=== PATIENT | male | born 1960 | race Caucasian/White ===

== ENCOUNTER 2020-11-13 00:02 | Emergency (ER) | payer BC ==
[2020-11-13] MEDS ORDERED: HYDROmorphone 1 MG/ML 1 ML SYRINGE IVP STA (00:05)
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
[2020-11-13] MEDS: SODIUM CHLORIDE 0.9% 1,000 ML IV STA ×2 (00:24→02:56)
[2020-11-13 00:35] VITALS: TEMP 98.3
[2020-11-13 00:44] LABS: Basophils # (A) 0.1 k/uL (0-0.2); Basophils % (A) 0 %; Eosinophils # (A) 0.1 k/uL (0-0.7); Eosinophils % (A) 1 %; HCT 42.2 % (39.0-53.0); HGB 14.8 gm/dL (13.0-17.5); Lymphocytes # (A) 0.5 k/uL (1.0-4.8); Lymphocytes % (A) 5 %; MCH 33.2 pg (25.0-35.0); MCV 95.1 fL (80.0-100.0); Monocytes # (A) 0.7 k/uL (0-1.0); Monocytes % (A) 6 %; Neutrophils # (A) 9.1 k/uL (1.3-7.7); Neutrophils % (A) 87 %; Platelet Count 147 k/uL (150-450); RBC 4.44 m/uL (4.30-5.90); RDW 12.8 % (11.5-15.5); WBC 10.5 k/uL (3.8-10.6)
[2020-11-13 01:01] LABS: Prothrombin Time 10.3 sec (9.0-12.0)
[2020-11-13 01:12] LABS: Partial Thromboplastin Time 20.4 sec (22.0-30.0)
--- NOTE | 2020-11-13 01:13 | CT ---
EXAM: CT Head Without Intravenous Contrast CLINICAL HISTORY: ITS.REASON CT Reason: trauma TECHNIQUE: Axial computed tomography images of the head/brain without intravenous contrast. CTDI is 35.335 mGy and DLP is 936.85 mGy-cm. This CT exam was performed using one or more of the following dose reduction techniques: automated exposure control, adjustment of the mA and/or kV according to patient size, and/or use of iterative reconstruction technique. COMPARISON: No relevant prior studies available. FINDINGS: Brain: No acute infarct, hemorrhage, mass or edema. Chronic small vessel ischemic disease. Ventricles: Unremarkable. No ventriculomegaly. Bones/joints: Unremarkable. No acute calvarial fracture. Soft tissues: Unremarkable. Sinuses: Mild mucosal thickening the paranasal sinuses. Mastoid air cells: Unremarkable as visualized. IMPRESSION: No acute findings in the head/brain. EXAM: CT Cervical Spine Without Intravenous Contrast CLINICAL HISTORY: ITS.REASON CT Reason: trauma TECHNIQUE: Axial computed tomography images of the cervical spine without intravenous contrast. CTDI is 35.335 mGy and DLP is 936.85 mGy-cm. This CT exam was performed using one or more of the following dose reduction techniques: automated exposure control, adjustment of the mA and/or kV according to patient size, and/or use of iterative reconstruction technique. COMPARISON: No relevant prior studies available. FINDINGS: Vertebrae: Acute nondisplaced fracture through the base of the dens suggesting a type II dens fracture. Discs/spinal canal/neural foramina: Multilevel degenerative changes. Soft tissues: Unremarkable. IMPRESSION: Acute nondisplaced fracture through the base of the dens suggesting a type II dens fracture. <MYCVCSECTION> Communications: 11/13/20 01:18 Verify Receipt Verified receipt with ANGELICA Cain
--- NOTE | 2020-11-13 01:22 | CT ---
EXAM: CT Chest With Intravenous Contrast CLINICAL HISTORY: ITS.REASON CT Reason: trauma TECHNIQUE: Axial computed tomography images of the chest with intravenous contrast. CTDI is 25.442 mGy and DLP is 1529.70 mGy-cm. This CT exam was performed using one or more of the following dose reduction techniques: automated exposure control, adjustment of the mA and/or kV according to patient size, and/or use of iterative reconstruction technique. COMPARISON: No relevant prior studies available. FINDINGS: Lungs: Bibasilar atelectasis and/or scarring. Pleural space: Unremarkable. No pneumothorax. No significant effusion. Heart: Unremarkable. No cardiomegaly. No significant pericardial effusion. Bones/joints: Acute fracture of the mid to lateral third right clavicle. Acute fracture of the right third through ninth ribs, a couple of which are displaced. No dislocation. Soft tissues: Unremarkable. Vasculature: Unremarkable. No thoracic aortic aneurysm. Lymph nodes: Unremarkable. IMPRESSION: 1. Acute fracture of the mid to lateral third right clavicle. 2. Acute fracture of the right third through ninth ribs, a couple of which are displaced. EXAM: CT Abdomen and Pelvis With Intravenous Contrast CLINICAL HISTORY: ITS.REASON CT Reason: trauma TECHNIQUE: Axial computed tomography images of the abdomen and pelvis with intravenous contrast. CTDI is 25.442 mGy and DLP is 1529.70 mGy-cm. This CT exam was performed using one or more of the following dose reduction techniques: automated exposure control, adjustment of the mA and/or kV according to patient size, and/or use of iterative reconstruction technique. COMPARISON: No relevant prior studies available. FINDINGS: Lung bases: Unremarkable. ABDOMEN: Liver: Hepatic steatosis. Gallbladder and bile ducts: Unremarkable. Pancreas: Unremarkable. Spleen: Mild splenomegaly. Adrenals: Unremarkable. Kidneys and ureters: Unremarkable. Stomach and bowel: Colonic diverticulosis. PELVIS: Appendix: Appendix is unremarkable. Bladder: Unremarkable. Reproductive: Unremarkable as visualized. ABDOMEN and PELVIS: Intraperitoneal space: Unremarkable. Bones/joints: Degenerative changes of the spine. No acute fracture. No dislocation. Soft tissues: Unremarkable. Vasculature: Vascular calcifications. Lymph nodes: Unremarkable. IMPRESSION: Mild splenomegaly.
[2020-11-13 01:43] LABS: ALT 80 U/L (4-49); AST 104 U/L (17-59); African American GFR (CKD) >90 (>60 ml/min/1.73 sqM); Albumin 4.2 g/dL (3.5-5.0); Alkaline Phosphatase 64 U/L (38-126); Anion Gap 11 mmol/L; Blood Urea Nitrogen 7 mg/dL (9-20); Calcium 8.9 mg/dL (8.4-10.2); Carbon Dioxide 25 mmol/L (22-30); Chloride 104 mmol/L (98-107); Glucose 244 mg/dL (74-99); Non-African American GFR(CKD) >90 (>60 ml/min/1.73 sqM); Potassium 4.2 mmol/L (3.5-5.1); Sodium 140 mmol/L (137-145); Total Bilirubin 1.3 mg/dL (0.2-1.3)
[2020-11-13 01:45] LABS: Creatine Kinase 1033 U/L (55-170)
[2020-11-13 01:47] LABS: Alcohol 98 mg/dL
[2020-11-13 01:54] LABS: Creatine Kinase MB 9.7 ng/mL (0.0-2.4); Troponin I <0.012 ng/mL (0.000-0.034)
[2020-11-13 02:35] LABS: Appearance,Urine Clear (Clear); Bilirubin,Urine Negative (Negative); Blood,Urine Negative (Negative); Color,Urine Yellow; Glucose,Urine (UA) 2+ (Negative); Ketones,Urine Negative (Negative); Leukocyte Esterase,Urine Negative (Negative); Nitrite,Urine Negative (Negative); Protein,Urine Negative (Negative); Urobilinogen,Urine <2.0 mg/dL (<2.0)
[2020-11-13] MEDS ORDERED: LORazepam 2 MG/ML INJ IV STA (02:40)
[2020-11-13 02:43] LABS: Amphetamine Screen,Urine Not Detected (NotDetected); Barbiturate Screen,Urine Not Detected (NotDetected); Benzodiazepines Screen,Urine Detected (NotDetected); Cocaine Screen,Urine Not Detected (NotDetected); Methadone Screen, Urine Not Detected (NotDetected); Opiate Screen,Urine Detected (NotDetected); Oxycodone Screen, Urine Not Detected (NotDetected); Phencyclidine Screen,Urine Not Detected (NotDetected); Tricyclic Antidepressant,Urine Not Detected (NotDetected); Urn Cannabinoid Scrn Not Detected (NotDetected)
[2020-11-13 02:45] LABS: Specific Gravity,Urine >1.050 (1.001-1.035)
[2020-11-13] MEDS ORDERED: SODIUM CHLORIDE 0.9% 1,000 ML IV STA (02:45)
[2020-11-13 02:50] VITALS: RESP 22
[2020-11-13 03:07] VITALS: BP 182/101; PULSE 102
== END 2020-11-13 03:00 | disposition other institution (70) ==
LOC: EC 00:02
DX: S22.41XA Multiple fractures of ribs, right side, initial encounter for closed fracture (principal); S12.112A Nondisplaced Type II dens fracture, initial encounter for closed fracture; F10.129 Alcohol abuse with intoxication, unspecified; F41.9 Anxiety disorder, unspecified; I10 Essential (primary) hypertension; M10.9 Gout, unspecified; Z79.899 Other long term (current) drug therapy; V86.59XA Driver of other special all-terrain or other off-road motor vehicle injured in nontraffic accident, initial encounter; Y93.89 Activity, other specified; Y92.410 Unspecified street and highway as the place of occurrence of the external cause; Y90.4 Blood alcohol level of 80-99 mg/100 ml
CPT/HCPCS: 36415; 93005; 86900; 86901; 80053; 82550; 82553; 84484; 85025; 85610; 85730; 86850; 81003; 80306; 80320; 72125; 70450; 71260; 74177; 99291; 96374; 96375; 96361 ×2; L0120; J2060; J1170; Q9967

== ENCOUNTER 2021-02-07 21:12 | Inpatient (IN) | payer BC ==
[2021-02-07] MEDS ORDERED: MIDAZOLAM 1 MG/ML 5 ML VIAL IV STA (21:34)
--- NOTE | 2021-02-07 21:45 | CT ---
EXAMINATION TYPE: CT brain dameon wo con DATE OF EXAM: 02/07/2021 COMPARISON: 07/13/2021 HISTORY: Altered mental status, head injury after fall. CT DLP: 1914.9 mGycm Automated exposure control for dose reduction was used. Exam performed without contrast. There is mild cerebral atrophy. There is no mass effect nor midline shift. There is no sign of intrac ranial hemorrhage. Calvarium is intact. There is normal aeration of the mastoid sinuses. Skull base i s intact. Cervical vertebra show mild straightening. There is anterior fusion surgery at C5-6. There is posteri or endplate spur formation at C5-6 with some encroachment on the spinal canal. There is mild hypertro phic facet arthropathy. There is no compression fracture. IMPRESSION: Mild cerebral atrophy. No acute intracranial abnormality. No change. Cervical spine fusion surgery. No fracture seen. Surgery is new compared to old exam. There is probab ly some bony spinal stenosis at C5-6. Unchanged.
--- NOTE | 2021-02-07 21:51 | XR ---
EXAMINATION TYPE: XR chest 1V DATE OF EXAM: 02/07/2021 COMPARISON: NONE HISTORY: Altered mental status TECHNIQUE: Single view FINDINGS: Heart is enlarged. There is mild pulmonary congestion. Exam limited by patient's size. Ther e is poor inspiration. There is cervical spine fusion surgery. IMPRESSION: Cardiomegaly. Pulmonary fibrosis. There is probably some pulmonary vascular congestion.
[2021-02-07 22:04] LABS: Glucose,Whole Blood 165 mg/dL (75-99)
[2021-02-07 22:12] LABS: Basophils % (A) 0 %; Eosinophils % (A) 1 %; HCT 39.1 % (39.0-53.0); HGB 13.9 gm/dL (13.0-17.5); Lymphocytes # (A) 1.1 k/uL (1.0-4.8); Lymphocytes % (A) 21 %; MCH 29.3 pg (25.0-35.0); MCHC 35.4 g/dL (31.0-37.0); MCV 82.8 fL (80.0-100.0); Mean Platelet Volume 7.2; Monocytes # (A) 0.3 k/uL (0-1.0); Monocytes % (A) 6 %; Neutrophils # (A) 3.6 k/uL (1.3-7.7); Neutrophils % (A) 70 %; Platelet Count 110 k/uL (150-450); RBC 4.73 m/uL (4.30-5.90); RDW 14.5 % (11.5-15.5); WBC 5.2 k/uL (3.8-10.6)
[2021-02-07 22:13] LABS: Appearance,Urine Clear (Clear); Bilirubin,Urine Negative (Negative); Blood,Urine Negative (Negative); Color,Urine Yellow; Glucose,Urine (UA) Negative (Negative); Ketones,Urine Negative (Negative); Leukocyte Esterase,Urine Negative (Negative); Nitrite,Urine Negative (Negative); PH, Urine 5.5 (5.0-8.0); Protein,Urine Negative (Negative); Urobilinogen,Urine <2.0 mg/dL (<2.0)
[2021-02-07 22:25] LABS: INR 1.3 (<1.2); Partial Thromboplastin Time 25.1 sec (22.0-30.0); Prothrombin Time 13.2 sec (9.0-12.0)
[2021-02-07 22:33] LABS: ALT 52 U/L (4-49); AST 88 U/L (17-59); Acetaminophen <10.0 ug/mL; African American GFR (CKD) >90 (>60 ml/min/1.73 sqM); Albumin 3.3 g/dL (3.5-5.0); Alkaline Phosphatase 145 U/L (38-126); Anion Gap 11 mmol/L; Blood Urea Nitrogen 16 mg/dL (9-20); Calcium 7.8 mg/dL (8.4-10.2); Carbon Dioxide 23 mmol/L (22-30); Chloride 104 mmol/L (98-107); Creatine Kinase 141 U/L (55-170); Glucose 173 mg/dL (74-99); Non-African American GFR(CKD) >90 (>60 ml/min/1.73 sqM); Potassium 3.9 mmol/L (3.5-5.1); Salicylate <1.0 mg/dL; Sodium 138 mmol/L (137-145); Total Bilirubin 1.2 mg/dL (0.2-1.3); Total Protein 6.1 g/dL (6.3-8.2)
[2021-02-07 22:36] LABS: Amphetamine Screen,Urine Not Detected (NotDetected); Barbiturate Screen,Urine Not Detected (NotDetected); Benzodiazepines Screen,Urine Not Detected (NotDetected); Cocaine Screen,Urine Not Detected (NotDetected); Methadone Screen, Urine Not Detected (NotDetected); Opiate Screen,Urine Not Detected (NotDetected); Oxycodone Screen, Urine Not Detected (NotDetected); Phencyclidine Screen,Urine Not Detected (NotDetected); Tricyclic Antidepressant,Urine Not Detected (NotDetected); Urn Cannabinoid Scrn Not Detected (NotDetected)
[2021-02-07 22:38] LABS: Alcohol 214 mg/dL
[2021-02-07 22:41] LABS: Lactic Acid, Venous 4.4 mmol/L (0.7-2.0)
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
[2021-02-07] MEDS ORDERED: LORazepam 2 MG/ML INJ IV PRN (22:52)
[2021-02-07] MEDS ORDERED: THIAMINE 100 MG/ML 2 ML VIAL IM ONE (23:00)
[2021-02-07] MEDS: LORazepam 2 MG/ML INJ IV PRN (23:32)
[2021-02-07] MEDS ORDERED: SODIUM CHLORIDE 0.9% 2,000 ML IV ONE (23:33)
[2021-02-07] MEDS ORDERED: NALOXONE 0.4 MG/ML 1 ML VIAL IV PRN (23:38)
--- NOTE | 2021-02-08 01:33 | P.HPIM ---
History of Present Illness H&P Date: 02/08/21 The patient is a 60-year-old male with a PMH of EtOH abuse who was brought into the emergency room via EMS for altered mental status and alcohol intoxication. The family reportedly found the patient in their home unresponsive on the floor. EMS was subsequently called and the patient became belligerent, was sedated with 400 mg of ketamine and was brought into the emergency room. At the time of interview, the patient reported that he does not recall the events of the day but that he drinks 2 pints of hard liquor daily. He denied any active complaints and is eager to be discharged home though he agreed to stay the night at the hospital. He denied chest pain, shortness without fever, chills. Denied headache, weakness, numbness, tingling. Denied nausea, vomiting, abdominal pain, diarrhea. CT brain and cervical spine were unremarkable. Chest x-ray revealed cardiomegaly and pulmonary fibrosis with some pulmonary vascular congestion. EKG reveals sinus tachycardia at [address]/T wave changes noted as reviewed by me. Laboratory evaluation was remarkable for lactic acid of 4.4, glucose 173, AST 88, ALT 52, alk phos 145, and a serum alcohol level of 214. Review of systems: Pertinent positives and negatives as discussed in HPI, a complete review of systems was performed and all other systems are negative. Physical examination General: disheveled male, no distress, appears at stated age, obese Derm: no unusual rashes/lesions no unusual ecchymoses, warm, dry Head: atraumatic, normocephalic, symmetric Eyes: EOMI, no lid lag, anicteric sclera, pupils equal round reactive to light ENT: Nose and ears atraumatic, no thrush, no pharyngeal erythema Neck: No thyromegaly, no cervical lymphadenopathy, trachea midline, supple Mouth: no lip lesion, mucus membranes moist Cardiovascular: S1S2 reg, no murmur, positive posterior tibial pulse bilateral, no edema, capillary refill less than 2 seconds Lungs: CTA bilateral, no rhonchi, no rales , no accessory muscle use Abdominal: soft, nontender to palpation, no guarding, no appreciable organomegaly, normal bowel sounds Ext: no gross muscle atrophy, muscle strength 5 out of 5 in all 4 extremities grossly, no contractures, Neuro: CN II-XI grossly intact, light touch intact all 4 extremities, finger to nose within normal limits Psych: Alert, oriented, appropriate affect Assessment/plan Alcohol intoxication, now improved -Thiamine, multivitamin -Continue IV fluids -Monitor electrolytes -CIWA protocol for now Lactic acidosis -Monitor for resolution -continue with IV fluids Hyperglycemia -Check A1c Abnormal LFTs -Likely due to alcohol abuse Thrombocytopenia -Likely secondary to EtOH abuse DVT prophylaxis -IPCDs The patient is admitted with an anticipated less than 2 midnight stay for evaluation of EtOH abuse. CODE STATUS: Full Code Discussed with: Patient Anticipated discharge date: in am Anticipated discharge place: Home A total of 35 minutes was spent on the care of this complex patient more than 50% of the time was spent in counseling and care coordination. Past Medical History Past Medical History: Hypertension Additional Past Medical History / Comment(s): gout History of Any Multi-Drug Resistant Organisms: None Reported Additional Past Surgical History / Comment(s): skin graphs lt side of body d/t jarrell Past Anesthesia/Blood Transfusion Reactions: No Reported Reaction Past Psychological History: Anxiety Past Alcohol Use History: Daily Additional Past Alcohol Use History / Comment(s): chew tobacco uses 1 tin/day for past 30 years Past Drug Use History: None Reported - Past Family History Father Family Medical History: Cancer Mother Family Medical History: Cancer Medications and Allergies Home Medications Medication Instructions Recorded Confirmed Type Losartan/Hydrochlorothiazide 1 tab PO DAILY 11/03/15 02/07/21 History [Losartan-Hctz 100-12.5 mg Tab] Daily-Charissa 1 tab PO DAILY 02/07/21 02/07/21 History busPIRone HCl [Buspar] 10 mg PO BID@0900,1700 02/07/21 02/07/21 History cloNIDine HCL 0.1 mg PO DAILY 02/07/21 02/07/21 History Allergies Allergy/AdvReac Type Severity Reaction Status Date / Time No Known Allergies Allergy Verified 11/02/15 13:37 Physical Exam Vitals: Vital Signs Pulse Resp BP Pulse Ox 02/07/21 23:55 109 H 16 158/97 02/07/21 21:15 109 H 16 190/114 100 Intake and Output 02/07/21 02/07/21 02/08/21 14:59 22:59 06:59 Other: Weight 117.934 kg Results CBC & Chem 7: 02/07/21 22:01 02/07/21 22:01 Labs: Abnormal Lab Results - Last 24 Hours (Table) 02/07/21 02/07/21 02/07/21 Range/Units 22:01 22:01 22:01 Plt Count 110 L (150-450) k/uL PT 13.2 H (9.0-12.0) sec INR 1.3 H (<1.2) Glucose 173 H (74-99) mg/dL POC Glucose (mg/dL) (75-99) mg/dL Plasma Lactic Acid Thor (0.7-2.0) mmol/L Calcium 7.8 L (8.4-10.2) mg/dL AST 88 H (17-59) U/L ALT 52 H (4-49) U/L Alkaline Phosphatase 145 H (38-126) U/L Total Protein 6.1 L (6.3-8.2) g/dL Albumin 3.3 L (3.5-5.0) g/dL Serum Alcohol 214 H* mg/dL 02/07/21 02/07/21 Range/Units 22:01 22:03 Plt Count (150-450) k/uL PT (9.0-12.0) sec INR (<1.2) Glucose (74-99) mg/dL POC Glucose (mg/dL) 165 H (75-99) mg/dL Plasma Lactic Acid Thor 4.4 H* (0.7-2.0) mmol/L Calcium (8.4-10.2) mg/dL AST (17-59) U/L ALT (4-49) U/L Alkaline Phosphatase (38-126) U/L Total Protein (6.3-8.2) g/dL Albumin (3.5-5.0) g/dL Serum Alcohol mg/dL
[2021-02-08] MEDS: LORazepam 2 MG/ML INJ IV PRN ×6 (01:58→22:12)
[2021-02-08 05:46] LABS: Basophils % (A) 0 %; Eosinophils % (A) 1 %; HCT 38.6 % (39.0-53.0); HGB 13.6 gm/dL (13.0-17.5); Lymphocytes # (A) 1.2 k/uL (1.0-4.8); Lymphocytes % (A) 24 %; MCHC 35.1 g/dL (31.0-37.0); MCV 82.6 fL (80.0-100.0); Mean Platelet Volume 7.1; Monocytes # (A) 0.3 k/uL (0-1.0); Monocytes % (A) 6 %; Neutrophils # (A) 3.3 k/uL (1.3-7.7); Neutrophils % (A) 67 %; RBC 4.67 m/uL (4.30-5.90); RDW 14.4 % (11.5-15.5); WBC 4.9 k/uL (3.8-10.6)
[2021-02-08 05:53] LABS: Platelet Count 87 k/uL (150-450)
[2021-02-08 06:29] LABS: African American GFR (CKD) >90 (>60 ml/min/1.73 sqM); Anion Gap 8 mmol/L; Blood Urea Nitrogen 14 mg/dL (9-20); Calcium 7.3 mg/dL (8.4-10.2); Carbon Dioxide 28 mmol/L (22-30); Chloride 105 mmol/L (98-107); Glucose 132 mg/dL (74-99); Magnesium 1.7 mg/dL (1.6-2.3); Non-African American GFR(CKD) >90 (>60 ml/min/1.73 sqM); Potassium 3.9 mmol/L (3.5-5.1); Sodium 141 mmol/L (137-145)
[2021-02-08] MEDS: THIAMINE 100 MG TAB PO SCH ×2 (07:36→17:15)
[2021-02-08] MEDS: SODIUM CHLORIDE 0.9% 1,000 ML IV SCH ×2 (07:37→12:01)
[2021-02-08] MEDS: hydroCHLOROthiazide 12.5 MG CAP PO SCH (09:18)
[2021-02-08] MEDS: cloNIDine HCL 0.1 MG TAB PO SCH (09:18)
[2021-02-08] MEDS: busPIRone HCl 10 MG TAB PO SCH ×2 (09:18→17:15)
[2021-02-08] MEDS: LOSARTAN 50 MG TAB PO SCH (09:18)
[2021-02-08] MEDS ORDERED: hydrALAZINE HCL 20 MG/ML 1 ML VIAL IVP STA (13:30)
[2021-02-08] MEDS ORDERED: SODIUM CHLORIDE 0.9% 500 ML 500 ML IV ONE (13:30)
[2021-02-08] MEDS: diazePAM 5 MG TAB PO SCH ×3 (14:00→22:05)
--- NOTE | 2021-02-08 14:02 | P.PN ---
Subjective Progress Note Date: 02/08/21 Patient was seen and evaluated by me in the ER today. He is awake and alert. He told me that he feels that objects are moving in the room. He was having withdrawal symptoms requiring IV Ativan pe CIWA protocol earlier. Blood pressure still not well controlled. Objective - Vital Signs Vital signs: Vital Signs Temp 99.3 F 02/08/21 12:12 Pulse 108 H 02/08/21 12:12 Resp 23 02/08/21 12:12 BP 194/116 02/08/21 12:12 Pulse Ox 97 02/08/21 12:12 Intake & Output 02/07/21 02/08/21 02/08/21 18:59 06:59 18:59 Weight 117.934 kg 117.934 kg - Exam General: The patient is awake and alert, in no distress Eye: there is normal conjunctiva bilaterally. Neck: The neck is supple, there is no JVD. Cardiovascular: Normal S1-S2, no S3-S4, no murmurs. Respiratory: Lungs clear to auscultation bilaterally Gastrointestinal: Abdomen is soft, nontender Musculoskeletal: There is no pedal edema. Neurological:. Speech is normal. Skin: Skin is warm and dry - Labs CBC & Chem 7: 02/08/21 04:57 02/08/21 04:57 Labs: Abnormal Lab Results - Last 24 Hours (Table) 02/07/21 02/07/21 02/07/21 Range/Units 22:01 22:01 22:01 Hct (39.0-53.0) % Plt Count 110 L (150-450) k/uL PT 13.2 H (9.0-12.0) sec INR 1.3 H (<1.2) Creatinine (0.66-1.25) mg/dL Glucose 173 H (74-99) mg/dL POC Glucose (mg/dL) (75-99) mg/dL Plasma Lactic Acid Thor (0.7-2.0) mmol/L Calcium 7.8 L (8.4-10.2) mg/dL AST 88 H (17-59) U/L ALT 52 H (4-49) U/L Alkaline Phosphatase 145 H (38-126) U/L Total Protein 6.1 L (6.3-8.2) g/dL Albumin 3.3 L (3.5-5.0) g/dL Serum Alcohol 214 H* mg/dL 02/07/21 02/07/21 02/08/21 Range/Units 22:01 22:03 01:54 Hct (39.0-53.0) % Plt Count (150-450) k/uL PT (9.0-12.0) sec INR (<1.2) Creatinine (0.66-1.25) mg/dL Glucose (74-99) mg/dL POC Glucose (mg/dL) 165 H (75-99) mg/dL Plasma Lactic Acid Thor 4.4 H* 3.3 H* (0.7-2.0) mmol/L Calcium (8.4-10.2) mg/dL AST (17-59) U/L ALT (4-49) U/L Alkaline Phosphatase (38-126) U/L Total Protein (6.3-8.2) g/dL Albumin (3.5-5.0) g/dL Serum Alcohol mg/dL 02/08/21 02/08/21 02/08/21 Range/Units 04:57 04:57 05:43 Hct 38.6 L (39.0-53.0) % Plt Count 87 L (150-450) k/uL PT (9.0-12.0) sec INR (<1.2) Creatinine 0.59 L (0.66-1.25) mg/dL Glucose 132 H (74-99) mg/dL POC Glucose (mg/dL) (75-99) mg/dL Plasma Lactic Acid Thor 2.7 H* (0.7-2.0) mmol/L Calcium 7.3 L (8.4-10.2) mg/dL AST (17-59) U/L ALT (4-49) U/L Alkaline Phosphatase (38-126) U/L Total Protein (6.3-8.2) g/dL Albumin (3.5-5.0) g/dL Serum Alcohol mg/dL 02/08/21 02/08/21 Range/Units 09:34 12:53 Hct (39.0-53.0) % Plt Count (150-450) k/uL PT (9.0-12.0) sec INR (<1.2) Creatinine (0.66-1.25) mg/dL Glucose (74-99) mg/dL POC Glucose (mg/dL) (75-99) mg/dL Plasma Lactic Acid Thor 3.1 H* 3.4 H* (0.7-2.0) mmol/L Calcium (8.4-10.2) mg/dL AST (17-59) U/L ALT (4-49) U/L Alkaline Phosphatase (38-126) U/L Total Protein (6.3-8.2) g/dL Albumin (3.5-5.0) g/dL Serum Alcohol mg/dL Assessment and Plan Assessment: This is a 60-year-old male that presented to the emergency room after he was found confused and rhonchi at home. He was evaluated in the ER and admitted to the hospital for further management of his medical problems noted below. 1. Alcohol intoxication with alcohol abuse/withdrawal: Patient told me that he drinks for half pints of liquor daily. We will continue aggressive IV fluid hydration. Start Valium 5 mg twice daily. IV Ativan as needed per CIWA protocol. Continue thiamine and folic acid. 2. Underlying hypertension with hypertensive urgency, mostly secondary to alcohol withdrawal. I would give one-time dose of IV hydralazine 10 mg now. Home medication resumed. We will continue to monitor closely. 3. Mild transaminitis, alcohol induced 4. Thrombocytopenia, probably alcohol induced 5. DVT prophylaxis with SCDs Today, I reviewed his medication list and lab work results. We will continue close monitoring and IV fluid hydration. Possible discharge in the morning.
[2021-02-08] MEDS: DEXTROSE 5%-0.45% NACL 1,000 ML IV SCH ×2 (14:04→20:57)
[2021-02-09 01:38] LABS: Hemoglobin A1C 5.6 % (4.0-6.0)
[2021-02-09] MEDS: THIAMINE 100 MG TAB PO SCH (07:42)
[2021-02-09] MEDS: busPIRone HCl 10 MG TAB PO SCH (07:42)
[2021-02-09] MEDS: LOSARTAN 50 MG TAB PO SCH (07:42)
[2021-02-09] MEDS: diazePAM 5 MG TAB PO SCH (07:42)
[2021-02-09] MEDS: cloNIDine HCL 0.1 MG TAB PO SCH (07:42)
[2021-02-09] MEDS: hydroCHLOROthiazide 12.5 MG CAP PO SCH (07:42)
[2021-02-09 08:05] VITALS: BP 180/96; PULSE 106; RESP 18; TEMP 99
--- NOTE | 2021-02-09 10:08 | P.DS ---
Providers Date of admission: 02/08/21 13:46 Expected date of discharge: 02/09/21 Attending physician: Lisa Starkey MD Primary care physician: Stated None Hospital Course: This is a 60-year-old male that presented to the emergency room after he was found confused at home. He was evaluated in the ER and admitted to the hospital for further management of his medical problems noted below. 1. Alcohol intoxication with alcohol abuse/withdrawal: Patient told me that he drinks for half pints of liquor daily. Patient was treated aggressively with IV fluid hydration and IV Ativan as needed for withdrawal symptoms 2. Underlying hypertension with hypertensive urgency, mostly secondary to alcohol withdrawal. Home dose of clonidine adjusted to 0.1 mg 3 times a day. Continue hydrochlorothiazide/losartan 3. Mild transaminitis, alcohol induced 4. Thrombocytopenia, probably alcohol induced Patient was counseled extensively to quit alcohol. He verbalized understanding of the risks and is willing to try. I advised him to try [place]. He would also check his blood pressure at home as his sister is a nurse and will follow-up on his blood pressure. He'll be discharged home in a stable condition. Patient Condition at Discharge: Stable Plan - Discharge Summary Discharge Rx Participant: No New Discharge Prescriptions: New cloNIDine HCL [Catapres] 0.1 mg PO TID #90 tab Thiamine [Vitamin B-1] 100 mg PO DAILY #30 tab Continue Losartan/Hydrochlorothiazide [Losartan-Hctz 100-12.5 mg Tab] 1 tab PO DAILY busPIRone HCl [Buspar] 10 mg PO BID@0900,1700 Daily-Charissa 1 tab PO DAILY Discontinued cloNIDine HCL 0.1 mg PO DAILY Discharge Medication List Losartan/Hydrochlorothiazide [Losartan-Hctz 100-12.5 mg Tab] 1 tab PO DAILY 11/03/15 [History] Daily-Charissa 1 tab PO DAILY 02/07/21 [History] busPIRone HCl [Buspar] 10 mg PO BID@0900,1700 02/07/21 [History] Thiamine [Vitamin B-1] 100 mg PO DAILY #30 tab 02/09/21 [Rx] cloNIDine HCL [Catapres] 0.1 mg PO TID #90 tab 02/09/21 [Rx] Follow up Appointment(s)/Referral(s): None,Stated [Primary Care Provider] - 1-2 days Discharge Disposition: HOME SELF-CARE
== END 2021-02-09 12:22 | disposition home or self-care (01) | DRG 897 ==
LOC: EC 21:12 → 4SSUR 02-08 → OBSVTOIN 02-08 13:46
PROVIDERS: ADMIT Internal Medicine; ATTEND Internal Medicine
DX: F10.229 Alcohol dependence with intoxication, unspecified (principal); S06.0X9A Concussion with loss of consciousness of unspecified duration, initial encounter; G93.40 Encephalopathy, unspecified; E87.2 Acidosis; F10.239 Alcohol dependence with withdrawal, unspecified; F41.9 Anxiety disorder, unspecified; I16.0 Hypertensive urgency; D69.59 Other secondary thrombocytopenia; Z20.822 Contact with and (suspected) exposure to COVID-19; I11.9 Hypertensive heart disease without heart failure; J84.10 Pulmonary fibrosis, unspecified; M48.02 Spinal stenosis, cervical region; R74.01 Elevation of levels of liver transaminase levels; W19.XXXA Unspecified fall, initial encounter; R40.2252 Coma scale, best verbal response, oriented, at arrival to emergency department; R40.2142 Coma scale, eyes open, spontaneous, at arrival to emergency department; M10.9 Gout, unspecified; R40.2362 Coma scale, best motor response, obeys commands, at arrival to emergency department; Y90.7 Blood alcohol level of 200-239 mg/100 ml; Z79.899 Other long term (current) drug therapy; F17.220 Nicotine dependence, chewing tobacco, uncomplicated; Z98.1 Arthrodesis status; Z78.1 Physical restraint status; Z71.41 Alcohol abuse counseling and surveillance of alcoholic; Z80.9 Family history of malignant neoplasm, unspecified
CPT/HCPCS: 36415; 70450; 71045; 72125; 80048; 80053; 80143; 80179; 80306; 80320; 81003; 82140; 82550; 83036; 83605; 83735; 84443; 84484; 85025; 85610; 85730; 87635; 93005; 99285

== ENCOUNTER 2024-08-26 07:07 | Emergency (ER) | payer MEDICARE, BC ==
--- NOTE | 2024-08-26 07:28 | ED ---
General Adult HPI - General Chief complaint: Urogenital Stated complaint: Urine Retention Time Seen by Provider: 08/26/24 07:09 Source: patient, RN notes reviewed, old records reviewed Mode of arrival: ambulatory Limitations: no limitations - History of Present Illness Initial comments: 63-year-old male with history of recurrent urinary retention following with with urology presents for evaluation of inability to urinate. Patient states he was at the urologist office yesterday and had his catheter removed and has been unable to have a significant amount of urine output since that time. No fever. No vomiting. - Related Data Home Medications Medication Instructions Recorded Confirmed Losartan/Hydrochlorothiazide 1 tab PO DAILY 11/03/15 02/07/21 [Losartan-Hctz 100-12.5 mg Tab] Daily-Charissa 1 tab PO DAILY 02/07/21 02/07/21 busPIRone HCl [Buspar] 10 mg PO BID@0900,1700 02/07/21 02/07/21 Previous Rx's Medication Instructions Recorded Thiamine [Vitamin B-1] 100 mg PO DAILY #30 tab 02/09/21 cloNIDine HCL [Catapres] 0.1 mg PO TID #90 tab 02/09/21 Allergies Allergy/AdvReac Type Severity Reaction Status Date / Time No Known Allergies Allergy Verified 08/26/24 07:15 Review of Systems ROS Statement: Those systems with pertinent positive or pertinent negative responses have been documented in the HPI. ROS Other: All systems not noted in ROS Statement are negative. Past Medical History Past Medical History: Hypertension, Prostate Disorder Additional Past Medical History / Comment(s): gout History of Any Multi-Drug Resistant Organisms: None Reported Additional Past Surgical History / Comment(s): skin graphs lt side of body d/t jarrell Past Anesthesia/Blood Transfusion Reactions: No Reported Reaction Past Psychological History: Anxiety Smoking Status: Never smoker Past Alcohol Use History: Daily Past Drug Use History: None Reported - Past Family History Father Family Medical History: Cancer Additional Family Medical History / Comment(s): Oral cancer. Father is . Mother Family Medical History: Cancer Additional Family Medical History / Comment(s): Breast cancer. Mother is . General Exam Limitations: no limitations General appearance: alert, in no apparent distress Head exam: Present: atraumatic, normocephalic Eye exam: Present: normal appearance, PERRL ENT exam: Present: normal exam Neck exam: Present: normal inspection. Absent: tenderness, meningismus Respiratory exam: Present: normal lung sounds bilaterally. Absent: respiratory distress, wheezes Cardiovascular Exam: Present: regular rate, normal rhythm GI/Abdominal exam: Present: soft. Absent: distended, tenderness, guarding, rebound Neurological exam: Present: alert, oriented X3 Psychiatric exam: Present: normal affect, normal mood Skin exam: Present: warm, dry, intact Course Vital Signs 08/26/24 07:12 Temperature 98 F Pulse Rate 103 H Respiratory 20 Rate Blood Pressure 130/73 O2 Sat by Pulse 97 Oximetry Medical Decision Making - Medical Decision Making Was pt. sent in by a medical professional or institution (, PA, [employer], urgent care, hospital, or [facility]...) When possible be specific @ -No Did you speak to anyone other than the patient for history (EMS, parent, family, police, friend...)? What history was obtained from this source @ -No Did you review nursing and triage notes (agree or disagree)? Why? @ -I reviewed and agree with nursing and triage notes Were old charts reviewed (outside hosp., previous admission, EMS record, old EKG, old radiological studies, urgent care reports/EKG's, [facility] records)? Report findings @ -No old charts were reviewed Differential Diagnosis BPH, UTI, urethral stricture, prostate mass. EKG interpreted by me (3pts min.). @ -As above X-rays interpreted by me (1pt min.). @ -None done CT interpreted by me (1pt min.). @ -None done U/S interpreted by me (1pt. min.). @ -None done What testing was considered but not performed or refused? (CT, X-rays, U/S, labs)? Why? @ -None What meds were considered but not given or refused? Why? @ -None Did you discuss the management of the patient with other professionals (professionals i.e. , [facility], [employer], lab, RT, psych nurse, neonatal social worker, board setter, teacher, aboriginal liaison officer, case checker)? Give summary @ -No Was smoking cessation discussed for >3mins.? @ -No Was critical care preformed (if so, how long)? @ -No Were there social determinants of health that impacted care today? How? (Homelessness, low income, unemployed, alcoholism, drug addiction, transportation, low edu. Level, literacy, decrease access to med. care, usp, rehab)? @ -No Was there de-escalation of care discussed even if they declined (Discuss DNR or withdrawal of care, Hospice)? DNR status @ -No What co-morbidities impacted this encounter? (DM, HTN, Smoking, COPD, CAD, Cancer, CVA, ARF, Chemo, Hep., AIDS, mental health diagnosis, sleep apnea, morbid obesity)? @ -None Was patient admitted / discharged? Hospital course, mention meds given and route, prescriptions, significant lab abnormalities, going to OR and other pertinent info. @ -63-year-old male who is following closely with urology and had his catheter removed yesterday presents with urinary retention. [place] catheter is placed in the emergency department and the patient will continue to follow with urology. Undiagnosed new problem with uncertain prognosis? @ -No Drug Therapy requiring intensive monitoring for toxicity (Heparin, Nitro, Insulin, Cardizem)? @ -No Were any procedures done? @ -No Diagnosis/symptom? @Urinary retention Acute, or Chronic, or Acute on Chronic? @ -Acute Uncomplicated (without systemic symptoms) or Complicated (systemic symptoms)? @ -Default Side effects of treatment? @ -No Exacerbation, Progression, or Severe Exacerbation? @ -No Poses a threat to life or bodily function? How? (Chest pain, [place], NH, pneumonia, PE, COPD, DKA, ARF, appy, cholecystitis, CVA, Diverticulitis, Homicidal, Suicidal, threat to staff... and all critical care pts) @ -No Disposition Clinical Impression: Urinary retention Disposition: HOME SELF-CARE Condition: Good Instructions (If sedation given, give patient instructions): Urinary Retention in Men (ED) Is patient prescribed a controlled substance at d/c from ED?: No Referrals: Sophie Allison MD [Primary Care Provider] - 1-2 days Daryl Pino MD [STAFF PHYSICIAN] - 1-2 days Time of Disposition: 07:28
[2024-08-26 08:01] LABS: Appearance,Urine Cloudy (Clear); Bacteria,Urine Rare /hpf; Bilirubin,Urine Negative (Negative); Blood,Urine Moderate (Negative); Color,Urine Yellow; Glucose,Urine (UA) Negative (Negative); Ketones,Urine Negative (Negative); Leukocyte Esterase,Urine Large (Negative); Mucus,Urine Many /hpf; Nitrite,Urine Positive (Negative); Protein,Urine Trace (Negative); RBC,Urine 103 /hpf (0-5); Specific Gravity,Urine 1.016 (1.001-1.035); Urobilinogen,Urine <2.0 mg/dL (<2.0); WBC,Urine >182 /hpf (0-5)
[2024-08-26 08:10] VITALS: BP 133/72; PULSE 92; RESP 18; TEMP 97.9
== END 2024-08-26 08:31 | disposition home or self-care (01) ==
LOC: EC 07:07
DX: R33.9 Retention of urine, unspecified (principal)
CPT/HCPCS: 51702; 81001; 87086; 99283

== ENCOUNTER 2024-09-15 00:46 | Emergency (ER) | payer MEDICARE, BC ==
[2024-09-15 00:50] VITALS: BP 147/80; PULSE 96; RESP 18; TEMP 97.4
--- NOTE | 2024-09-15 01:10 | ED ---
General Adult HPI - General Chief complaint: Urogenital Stated complaint: cath issues Time Seen by Provider: 09/15/24 00:51 Source: patient Mode of arrival: ambulatory - History of Present Illness Initial comments: 63-year-old male presenting with chief complaint of obstructed Groves catheter. Patient had a TURP procedure earlier today with Dr. Pino. States that since then he has had no output from his Groves catheter. He is having slight suprapubic discomfort. No flank pain, fever, nausea, vomiting. - Related Data Home Medications Medication Instructions Recorded Confirmed Losartan/Hydrochlorothiazide 1 tab PO DAILY 11/03/15 02/07/21 [Losartan-Hctz 100-12.5 mg Tab] Daily-Charissa 1 tab PO DAILY 02/07/21 02/07/21 busPIRone HCl [Buspar] 10 mg PO BID@0900,1700 02/07/21 02/07/21 Previous Rx's Medication Instructions Recorded Thiamine [Vitamin B-1] 100 mg PO DAILY #30 tab 02/09/21 cloNIDine HCL [Catapres] 0.1 mg PO TID #90 tab 02/09/21 Cephalexin [Keflex] 500 mg PO Q12HR #20 cap 08/26/24 Allergies Allergy/AdvReac Type Severity Reaction Status Date / Time No Known Allergies Allergy Verified 09/15/24 00:50 Review of Systems ROS Statement: Those systems with pertinent positive or pertinent negative responses have been documented in the HPI. ROS Other: All systems not noted in ROS Statement are negative. Past Medical History Past Medical History: Hypertension, Prostate Disorder Additional Past Medical History / Comment(s): gout History of Any Multi-Drug Resistant Organisms: None Reported Additional Past Surgical History / Comment(s): skin graphs lt side of body d/t jarrell Past Anesthesia/Blood Transfusion Reactions: No Reported Reaction Past Psychological History: Anxiety Smoking Status: Never smoker Past Alcohol Use History: Daily Past Drug Use History: None Reported - Past Family History Father Family Medical History: Cancer Additional Family Medical History / Comment(s): Oral cancer. Father is . Mother Family Medical History: Cancer Additional Family Medical History / Comment(s): Breast cancer. Mother is . General Exam General appearance: alert, in no apparent distress Head exam: Present: atraumatic, normocephalic, normal inspection Eye exam: Present: normal appearance, EOMI Neck exam: Present: normal inspection. Absent: meningismus Respiratory exam: Absent: respiratory distress Cardiovascular Exam: Present: regular rate GI/Abdominal exam: Present: soft. Absent: distended, tenderness, guarding, rebound, rigid Back exam: Present: normal inspection. Absent: tenderness Neurological exam: Present: alert, oriented X3 Psychiatric exam: Present: normal affect, normal mood Skin exam: Present: warm, dry Course Vital Signs 09/15/24 00:47 Temperature 97.4 F L Pulse Rate 96 Respiratory 18 Rate Blood Pressure 147/80 O2 Sat by Pulse 98 Oximetry Medical Decision Making - Medical Decision Making Was pt. sent in by a medical professional or institution (, [facility], ASSAYER HELPER, urgent care, hospital, or group home...) When possible be specific @ -No Did you speak to anyone other than the patient for history (EMS, parent, family, police, friend...)? What history was obtained from this source @ -No Did you review nursing and triage notes (agree or disagree)? Why? @ -I reviewed and agree with nursing and triage notes Were old charts reviewed (outside hosp., previous admission, EMS record, old EKG, old radiological studies, urgent care reports/EKG's, group home records)? Report findings @ -No old charts were reviewed Differential Diagnosis (chest pain, altered mental status, abdominal pain women, abdominal pain men, vaginal bleeding, weakness, fever, dyspnea, syncope, headache, dizziness, GI bleed, back pain, seizure, CVA, palpatations, mental health, musculoskeletal)? @ -Differential includes blood clot, kidney stone, anatomical obstruction, malfunction of Groves catheter, this is not an all-inclusive list EKG interpreted by me (3pts min.). @ -As above X-rays interpreted by me (1pt min.). @ -None done CT interpreted by me (1pt min.). @ -None done U/S interpreted by me (1pt. min.). @ -None done What testing was considered but not performed or refused? (CT, X-rays, U/S, labs)? Why? @ -None What meds were considered but not given or refused? Why? @ -None Did you discuss the management of the patient with other professionals (professionals i.e. , [facility], ASSAYER HELPER, lab, RT, psych nurse, outreach and education social worker, cottage master, teacher, chief growth officer, manager case)? Give summary @ -No Was smoking cessation discussed for >3mins.? @ -No Was critical care preformed (if so, how long)? @ -No Were there social determinants of health that impacted care today? How? (Homelessness, low income, unemployed, alcoholism, drug addiction, transportation, low edu. Level, literacy, decrease access to med. care, [facility], rehab)? @ -No Was there de-escalation of care discussed even if they declined (Discuss DNR or withdrawal of care, Hospice)? DNR status @ -No What co-morbidities impacted this encounter? (DM, HTN, Smoking, COPD, CAD, Cancer, CVA, ARF, Chemo, Hep., AIDS, mental health diagnosis, sleep apnea, morbid obesity)? @ -None Was patient admitted / discharged? Hospital course, mention meds given and route, prescriptions, significant lab abnormalities, going to OR and other pertinent info. @ -63-year-old male presenting with chief complaint of no output from his Groves catheter since this afternoon after his TURP procedure. Mild suprapubic di scomfort. Nurses are able to flush a significant amount of blood clots from the Groves and patient then has output with no difficulty. He will follow-up with his urologist. Follow-up with PCP. Report back to ER with any new or worsening symptoms. Discussed return parameters and answered all questions. Patient conveyed verbal understanding and agreed to the plan. I discussed this case in detail with my attending Dr. Monterroso Undiagnosed new problem with uncertain prognosis? @ -No Drug Therapy requiring intensive monitoring for toxicity (Heparin, Nitro, Insulin, Cardizem)? @ -No Were any procedures done? @ -No Diagnosis/symptom? @ -Groves catheter obstruction Acute, or Chronic, or Acute on Chronic? @ -Acute Uncomplicated (without systemic symptoms) or Complicated (systemic symptoms)? @ -Uncomplicated Side effects of treatment? @ -No Exacerbation, Progression, or Severe Exacerbation? @ -No Poses a threat to life or bodily function? How? (Chest pain, [place], [place], pneumonia, PE, COPD, DKA, ARF, appy, cholecystitis, CVA, Diverticulitis, Homicidal, Suicidal, threat to staff... and all critical care pts) @ -No Disposition Clinical Impression: Complication of Groves catheter Disposition: HOME SELF-CARE Condition: Good Additional Instructions: Follow-up with your urologist. Report back to ER with any new or worsening symptoms. Is patient prescribed a controlled substance at d/c from ED?: No Referrals: Sophie Allison MD [Primary Care Provider] - 1-2 days Time of Disposition: 01:09
== END 2024-09-15 01:13 | disposition home or self-care (01) ==
LOC: EC 00:46
DX: T83.098A Other mechanical complication of other urinary catheter, initial encounter (principal)
CPT/HCPCS: 51798; 99283

== ENCOUNTER 2024-09-16 10:25 | Emergency (ER) | payer MEDICARE, BC ==
[2024-09-16 10:36] VITALS: RESP 18
--- NOTE | 2024-09-16 11:27 | ED ---
Male Urogenital HPI - General Chief complaint: Urogenital Stated complaint: Cath issue Time Seen by Provider: 09/16/24 10:39 Source: patient, RN notes reviewed Mode of arrival: ambulatory Limitations: no limitations - History of Present Illness Initial comments: This is a 63-year-old male who presents to the emergency department for problems with his Groves catheter. Patient has a Groves catheter in place due to urinary retention. He has an appointment with urology tomorrow to have this removed. However, states that when he woke up this morning the catheter was not draining and he started to have increasing pain and pressure in his lower abdomen. - Related Data Home Medications Medication Instructions Recorded Confirmed Losartan/Hydrochlorothiazide 1 tab PO DAILY 11/03/15 02/07/21 [Losartan-Hctz 100-12.5 mg Tab] Daily-Charissa 1 tab PO DAILY 02/07/21 02/07/21 busPIRone HCl [Buspar] 10 mg PO BID@0900,1700 02/07/21 02/07/21 Previous Rx's Medication Instructions Recorded Thiamine [Vitamin B-1] 100 mg PO DAILY #30 tab 02/09/21 cloNIDine HCL [Catapres] 0.1 mg PO TID #90 tab 02/09/21 Cephalexin [Keflex] 500 mg PO Q12HR #20 cap 08/26/24 Allergies Allergy/AdvReac Type Severity Reaction Status Date / Time No Known Allergies Allergy Verified 09/16/24 10:36 Review of Systems ROS Statement: Those systems with pertinent positive or pertinent negative responses have been documented in the HPI. ROS Other: All systems not noted in ROS Statement are negative. Past Medical History Past Medical History: Hypertension, Prostate Disorder Additional Past Medical History / Comment(s): gout History of Any Multi-Drug Resistant Organisms: None Reported Additional Past Surgical History / Comment(s): skin graphs lt side of body d/t jarrell Past Anesthesia/Blood Transfusion Reactions: No Reported Reaction Past Psychological History: Anxiety Smoking Status: Never smoker Past Alcohol Use History: Daily Past Drug Use History: None Reported - Past Family History Father Family Medical History: Cancer Additional Family Medical History / Comment(s): Oral cancer. Father is . Mother Family Medical History: Cancer Additional Family Medical History / Comment(s): Breast cancer. Mother is . General Exam Limitations: no limitations General appearance: alert, in no apparent distress Head exam: Present: atraumatic, normocephalic, normal inspection Respiratory exam: Present: normal lung sounds bilaterally. Absent: respiratory distress, wheezes, rales, rhonchi, stridor Cardiovascular Exam: Present: regular rate, normal rhythm, normal heart sounds. Absent: systolic murmur, diastolic murmur, rubs, gallop, clicks GI/Abdominal exam: Present: soft, tenderness (Suprapubic), normal bowel sounds. Absent: distended Neurological exam: Present: alert, oriented X3, CN II-XII intact Psychiatric exam: Present: normal affect, normal mood Skin exam: Present: warm, dry, intact, normal color. Absent: rash Course Vital Signs 09/16/24 09/16/24 10:33 11:49 Temperature 97.5 F L 98 F Pulse Rate 110 H 94 Respiratory 18 18 Rate Blood Pressure 108/66 110/76 O2 Sat by Pulse 95 98 Oximetry Medical Decision Making - Medical Decision Making This is a 63 year old male who presents to the emergency department for problems with his Groves catheter. Was pt. sent in by a medical professional or institution? @ -No Did you speak to anyone other than the patient for history? @ -No Did you review nursing and triage notes? @ -Yes, and I agree, it is accurate with regards to the patient's symptoms. Were old charts reviewed? @ -No Differential Diagnosis? @ -Blood clot, bladder calculus, UTI, malposition, this is not meant to be an all-inclusive list. EKG interpreted by me (3pts min.)? @ -Not obtained X-rays interpreted by me (1pt min.)? @ -Not obtained CT interpreted by me (1pt min.)? @ -Not obtained U/S interpreted by me (1pt. min.)? @ -Not obtained What testing was considered but not performed? (CT, X-rays, U/S, labs)? Why? @ -None What meds were considered but not given? Why? @ -None Did you discuss the management of the patient with other professionals? @ -No Did you reconcile home meds? @ -No Was smoking cessation discussed for >3mins.? @ -No Was critical care preformed (if so, how long)? @ -No Were there social determinants of health that impacted care today? How? (Homelessness, low income, unemployed, alcoholism, drug addiction, transportation, low edu. Level, literacy, decrease access to med. care, retirement, rehab)? @ -No Was there de-escalation of care discussed even if they declined? (Discuss DNR or withdrawal of care, Hospice)? @ -No What co-morbidities impacted this encounter? (DM, HTN, Smoking, COPD, CAD, Cancer, CVA, Hep., AIDS, mental health diagnosis, sleep apnea, morbid obesity)? @ -None Was patient admitted / discharged? @ -Discharged. Patient's Groves catheter was not draining on presentation. Nursing staff flushed this and they were able to dislodge several blood clots. The catheter began to drain afterwards and the patient had relief in symptoms. He has an appointment with urology tomorrow and will follow-up as scheduled. Patient discharged home in stable condition. Case discussed with ED attending Dr. Lamas. Return precautions reviewed in depth, the patient is instructed to return to the emergency department with any new, worsening, or concerning symptoms. Patient verbalized understanding. Undiagnosed new problem with uncertain prognosis? @ -None Drug Therapy requiring intensive monitoring for toxicity (Heparin, Nitro, Insulin, Cardizem)? @ -None Were any procedures done? @ -None Diagnosis/symptom? @ -Problem with Groves catheter Acute, or Chronic, or Acute on Chronic? @ -Acute Uncomplicated (without systemic symptoms) or Complicated (systemic symptoms)? @ -Uncomplicated Side effects of treatment? @ -None Exacerbation, Progression, or Severe Exacerbation] @ -Not applicable Poses a threat to life or bodily function? @ -No Disposition Clinical Impression: Groves catheter problem Disposition: HOME SELF-CARE Instructions (If sedation given, give patient instructions): Groves Catheter Placement and Care (ED) Additional Instructions: Return to the emergency department with any new, worsening, or concerning sympt oms. Follow up with urology tomorrow as scheduled. Is patient prescribed a controlled substance at d/c from ED?: No Referrals: Sophie Allison MD [Primary Care Provider] - 1-2 days Time of Disposition: 11:25
[2024-09-16 11:51] VITALS: BP 110/76; PULSE 94; TEMP 98
== END 2024-09-16 11:49 | disposition home or self-care (01) ==
LOC: EC 10:25
DX: T83.098A Other mechanical complication of other urinary catheter, initial encounter (principal)
CPT/HCPCS: 51702; 99283

== ENCOUNTER 2024-10-02 07:22 | Emergency (ER) | payer MEDICARE, BC ==
[2024-10-02 07:35] VITALS: RESP 20; TEMP 98.1
[2024-10-02 08:06] LABS: Appearance,Urine Clear (Clear); Bilirubin,Urine Negative (Negative); Blood,Urine Large (Negative); Color,Urine Yellow; Glucose,Urine (UA) Negative (Negative); Ketones,Urine Negative (Negative); Leukocyte Esterase,Urine Large (Negative); Mucus,Urine Rare /hpf; Nitrite,Urine Negative (Negative); Protein,Urine Trace (Negative); RBC,Urine 87 /hpf (0-5); Specific Gravity,Urine 1.019 (1.001-1.035); Urobilinogen,Urine <2.0 mg/dL (<2.0); WBC,Urine 41 /hpf (0-5)
--- NOTE | 2024-10-02 08:18 | ED ---
General Adult HPI - General Chief complaint: Back Pain/Injury Stated complaint: Lower back pain Time Seen by Provider: 10/02/24 08:01 Source: patient, RN notes reviewed Mode of arrival: ambulatory Limitations: no limitations - History of Present Illness Initial comments: Patient is a 63-year-old male present to the emergency department with concerns with low back pain. Symptoms started around a week and a half ago. Discomfort is lower lumbar region with occasional radiation towards the right leg. Discomfort increases with right leg movement. No weakness. No loss of sensation. No incontinence or retention of bowel or bladder. Patient did have TURP and biopsy of the prostate done 3 weeks ago. Patient did follow-up with the urologist who ensured them symptoms were not related to that. - Related Data Home Medications Medication Instructions Recorded Confirmed Losartan/Hydrochlorothiazide 1 tab PO DAILY 11/03/15 10/02/24 [Losartan-Hctz 100-12.5 mg Tab] Daily-Charissa 1 tab PO DAILY 02/07/21 10/02/24 Atorvastatin [Lipitor] 10 mg PO DAILY 10/02/24 10/02/24 Cyanocobalamin (Vitamin B-12) 1,000 mcg PO DAILY 10/02/24 10/02/24 [Vitamin B-12] Tamsulosin [Flomax] 0.4 mg PO DAILY 10/02/24 10/02/24 amLODIPine [Norvasc] 5 mg PO DAILY 10/02/24 10/02/24 cloNIDine HCL [Catapres] 0.1 mg PO DAILY 10/02/24 10/02/24 metFORMIN HCL [Glucophage] 500 mg PO BID 10/02/24 10/02/24 Previous Rx's Medication Instructions Recorded Cyclobenzaprine [Flexeril] 10 mg PO TID PRN #12 tablet 10/02/24 Sulfamethox-Tmp 800-160Mg [Bactrim 1 each PO Q12HR #20 tab 10/02/24 DS 800-160 mg] Allergies Allergy/AdvReac Type Severity Reaction Status Date / Time No Known Allergies Allergy Verified 10/02/24 11:03 Review of Systems ROS Statement: Those systems with pertinent positive or pertinent negative responses have been documented in the HPI. ROS Other: All systems not noted in ROS Statement are negative. Constitutional: Denies: fever Eyes: Denies: eye pain ENT: Denies: ear pain Cardiovascular: Denies: chest pain Gastrointestinal: Denies: abdominal pain Musculoskeletal: Reports: as per HPI, back pain Neurological: Denies: weakness, numbness Past Medical History Past Medical History: Cancer, Hypertension, Prostate Disorder Additional Past Medical History / Comment(s): gout. prostate bx cancerous 09/2024 History of Any Multi-Drug Resistant Organisms: None Reported Additional Past Surgical History / Comment(s): skin graphs lt side of body d/t jarrell Past Anesthesia/Blood Transfusion Reactions: No Reported Reaction Past Psychological History: Anxiety Smoking Status: Never smoker Past Alcohol Use History: None Reported Past Drug Use History: None Reported - Past Family History Father Family Medical History: Cancer Additional Family Medical History / Comment(s): Oral cancer. Father is . Mother Family Medical History: Cancer Additional Family Medical History / Comment(s): Breast cancer. Mother is . General Exam Limitations: no limitations General appearance: alert, in no apparent distress Head exam: Present: normocephalic Eye exam: Present: normal appearance Neck exam: Present: normal inspection Respiratory exam: Present: normal lung sounds bilaterally Cardiovascular Exam: Present: regular rate, normal rhythm Expanded Peripheral pulses: 2+: Posterior Tibialis (R), Posterior Tibialis (L), Dorsalis Pedis (R), Dorsalis Pedis (L) GI/Abdominal exam: Present: soft. Absent: distended, tenderness, guarding, rebound, rigid, pulsatile mass Extremities exam: Present: normal inspection, other (Mild discomfort with straight leg raise on the right) Back exam: Present: normal inspection. Absent: tenderness Neurological exam: Present: alert. Absent: motor sensory deficit Expanded Sensory exam: Lower Extremity Light Touch: Normal Motor strength exam: RLE: 5, LLE: 5 Psychiatric exam: Present: normal affect, normal mood Skin exam: Present: normal color Course Vital Signs 10/02/24 07:32 Temperature 98.1 F Pulse Rate 93 Respiratory 20 Rate Blood Pressure 127/73 O2 Sat by Pulse 97 Oximetry Medical Decision Making - Medical Decision Making Was pt. sent in by a medical professional or institution (, PA, SPACE CONTROL SUPERVISOR, urgent care, hospital, or care home...) When possible be specific @ -No Did you speak to anyone other than the patient for history (EMS, parent, family, police, friend...)? What history was obtained from this source @ - is present helps provide history including recent procedure and patient's history Did you review nursing and triage notes (agree or disagree)? Why? @ -I reviewed and agree with nursing and triage notes Were old charts reviewed (outside hosp., previous admission, EMS record, old EKG, old radiological studies, urgent care reports/EKG's, care home records)? Report findings @ -No old charts were reviewed Differential Diagnosis (chest pain, altered mental status, abdominal pain women, abdominal pain men, vaginal bleeding, weakness, fever, dyspnea, syncope, headache, dizziness, GI bleed, back pain, seizure, CVA, palpatations, mental health, musculoskeletal)? @ -Differential Back Pain: Strain, zoster, cauda equina syndrome, epidural abscess, vertebral osteomyelitis, discitis, fracture, subluxation, disc herniation, DJD, spinal stenosis, dissection, AAA, pancreatitis, peptic ulcer disease, pyelonephritis, kidney stone, this is not meant to be an all-inclusive list. EKG interpreted by me (3pts min.). @ -As above X-rays interpreted by me (1pt min.). @ -None done CT interpreted by me (1pt min.). @ -CT scan abdomen pelvis does show pulmonary nodules. In addition there is so me prominence of the right kidney and bladder. U/S interpreted by me (1pt. min.). @ -None done What testing was considered but not performed or refused? (CT, X-rays, U/S, labs)? Why? @ -None What meds were considered but not given or refused? Why? @ -None Did you discuss the management of the patient with other professionals (professionals i.e. , PA, SPACE CONTROL SUPERVISOR, lab, RT, psych nurse, health social work professor, shellfish processing machine tender, teacher, housing management officer, case operator)? Give summary @ -No Was smoking cessation discussed for >3mins.? @ -No Was critical care preformed (if so, how long)? @ -No Were there social determinants of health that impacted care today? How? (Homelessness, low income, unemployed, alcoholism, drug addiction, transportation, low edu. Level, literacy, decrease access to med. care, fci, rehab)? @ -No Was there de-escalation of care discussed even if they declined (Discuss DNR or withdrawal of care, Hospice)? DNR status @ -No What co-morbidities impacted this encounter? (DM, HTN, Smoking, COPD, CAD, Cancer, CVA, ARF, Chemo, Hep., AIDS, mental health diagnosis, sleep apnea, morbid obesity)? @ -Recent diagnosis concerning for prostate cancer Was patient admitted / discharged? Hospital course, mention meds given and route, prescriptions, significant lab abnormalities, going to OR and other pertinent info. @ -Patient presents with typical back pain. Evaluation does have some prominence of the right kidney and bladder with concern for urinary tract infection on urinalysis. Patient will be discharged with antibiotics. In addition there is concern for pulmonary nodules/adenopathy. Patient and family updated on this and need for further investigation regarding this. They do have close follow-up with their urologist and further testing already planned. Undiagnosed new problem with uncertain prognosis? @ -No Drug Therapy requiring intensive monitoring for toxicity (Heparin, Nitro, Insulin, Cardizem)? @ -No Were any procedures done? @ -No Diagnosis/symptom? @ -Back pain, urinary tract infection, pulmonary nodule Acute, or Chronic, or Acute on Chronic? @ -Acute, acute, acute Uncomplicated (without systemic symptoms) or Complicated (systemic symptoms)? @ -Default Side effects of treatment? @ -No Exacerbation, Progression, or Severe Exacerbation? @ -No Poses a threat to life or bodily function? How? (Chest pain, USA, PR, pneumonia, PE, COPD, DKA, ARF, appy, cholecystitis, CVA, Diverticulitis, Homicidal, Suicidal, threat to staff... and all critical care pts) @ -No - Lab Data Result diagrams: 10/02/24 08:41 10/02/24 08:41 Lab Results 10/02/24 10/02/24 10/02/24 Range/Units 07:46 08:41 08:41 WBC 7.9 (3.8-10.6) k/uL RBC 3.51 L (4.30-5.90) m/uL Hgb 10.1 L (13.0-17.5) gm/dL Hct 29.1 L (39.0-53.0) % MCV 82.8 (80.0-100.0) fL MCH 28.6 (25.0-35.0) pg MCHC 34.5 (31.0-37.0) g/dL RDW 14.5 (11.5-15.5) % Plt Count 167 (150-450) k/uL MPV 7.7 Neutrophils % 78 % Lymphocytes % 11 % Monocytes % 6 % Eosinophils % 3 % Basophils % 0 % Neutrophils # 6.2 (1.3-7.7) k/uL Lymphocytes # 0.9 L (1.0-4.8) k/uL Monocytes # 0.5 (0-1.0) k/uL Eosinophils # 0.2 (0-0.7) k/uL Basophils # 0.0 (0-0.2) k/uL PT 11.0 (10.0-12.5) sec INR 1.0 (<1.2) APTT 24.0 (22.0-30.0) sec Sodium (137-145) mmol/L Potassium (3.5-5.1) mmol/L Chloride (98-107) mmol/L Carbon Dioxide (22-30) mmol/L Anion Gap mmol/L BUN (9-20) mg/dL Creatinine (0.66-1.25) mg/dL Est GFR (CKD-EPI)AfAm (>60 ml/min/1.73 sqM) Est GFR (CKD-EPI)NonAf (>60 ml/min/1.73 sqM) Glucose (74-99) mg/dL Calcium (8.4-10.2) mg/dL Total Bilirubin (0.2-1.3) mg/dL AST (17-59) U/L ALT (4-49) U/L Alkaline Phosphatase (38-126) U/L Total Protein (6.3-8.2) g/dL Albumin (3.5-5.0) g/dL Urine Color Yellow Urine Appearance Clear (Clear) Urine pH 6.0 (5.0-8.0) Ur Specific [place] 1.019 (1.001-1.035) Urine Protein Trace H (Negative) Urine Glucose (UA) Negative (Negative) Urine Ketones Negative (Negative) Urine Blood Large H (Negative) Urine Nitrite Negative (Negative) Urine Bilirubin Negative (Negative) Urine Urobilinogen <2.0 (<2.0) mg/dL Ur Leukocyte Esterase Large H (Negative) Urine RBC 87 H (0-5) /hpf Urine WBC 41 H (0-5) /hpf Urine Mucus Rare H (None) /hpf 10/02/24 Range/Units 08:41 WBC (3.8-10.6) k/uL RBC (4.30-5.90) m/uL Hgb (13.0-17.5) gm/dL Hct (39.0-53.0) % MCV (80.0-100.0) fL MCH (25.0-35.0) pg MCHC (31.0-37.0) g/dL RDW (11.5-15.5) % Plt Count (150-450) k/uL MPV Neutrophils % % Lymphocytes % % Monocytes % % Eosinophils % % Basophils % % Neutrophils # (1.3-7.7) k/uL Lymphocytes # (1.0-4.8) k/uL Monocytes # (0-1.0) k/uL Eosinophils # (0-0.7) k/uL Basophils # (0-0.2) k/uL PT (10.0-12.5) sec INR (<1.2) APTT (22.0-30.0) sec Sodium 136 L (137-145) mmol/L Potassium 4.0 (3.5-5.1) mmol/L Chloride 103 (98-107) mmol/L Carbon Dioxide 24 (22-30) mmol/L Anion Gap 9 mmol/L BUN 19 (9-20) mg/dL Creatinine 0.82 (0.66-1.25) mg/dL Est GFR (CKD-EPI)AfAm >90 (>60 ml/min/1.73 sqM) Est GFR (CKD-EPI)NonAf >90 (>60 ml/min/1.73 sqM) Glucose 157 H (74-99) mg/dL Calcium 9.1 (8.4-10.2) mg/dL Total Bilirubin 1.1 (0.2-1.3) mg/dL AST 35 (17-59) U/L ALT 14 (4-49) U/L Alkaline Phosphatase 894 H (38-126) U/L Total Protein 6.9 (6.3-8.2) g/dL Albumin 4.0 (3.5-5.0) g/dL Urine Color Urine Appearance (Clear) Urine pH (5.0-8.0) Ur Specific [place] (1.001-1.035) Urine Protein (Negative) Urine Glucose (UA) (Negative) Urine Ketones (Negative) Urine Blood (Negative) Urine Nitrite (Negative) Urine Bilirubin (Negative) Urine Urobilinogen (<2.0) mg/dL Ur Leukocyte Esterase (Negative) Urine RBC (0-5) /hpf Urine WBC (0-5) /hpf Urine Mucus (None) /hpf Disposition Clinical Impression: Back pain, Pulmonary nodule, Urinary tract infection Disposition: HOME SELF-CARE Condition: Stable Instructions (If sedation given, give patient instructions): Acute Low Back Pain (ED) Additional Instructions: Prescription sent to pharmacy. Please do follow-up with your primary care physician in the next day or 2 for recheck. Also follow-up with your urologist. Please have them review urinalysis and urine culture and CT scan from today. You will need further evaluation and have them review CT scans. You may need further evaluation also with specialist including pulmonary or oncology. Return for increased pain, fever, weakness, difficulty breathing, worsening or changing symptoms or any other concerns. Prescriptions: Sulfamethox-Tmp 800-160Mg [Bactrim DS 800-160 mg] 1 each PO Q12HR #20 tab Cyclobenzaprine [Flexeril] 10 mg PO TID PRN #12 tablet PRN Reason: Pain Is patient prescribed a controlled substance at d/c from ED?: No Referrals: Sophie Allison MD [Primary Care Provider] - 1-2 days Time of Disposition: 11:39
[2024-10-02 08:55] LABS: Basophils % (A) 0 %; Eosinophils # (A) 0.2 k/uL (0-0.7); Eosinophils % (A) 3 %; HCT 29.1 % (39.0-53.0); HGB 10.1 gm/dL (13.0-17.5); Lymphocytes # (A) 0.9 k/uL (1.0-4.8); Lymphocytes % (A) 11 %; MCH 28.6 pg (25.0-35.0); MCHC 34.5 g/dL (31.0-37.0); MCV 82.8 fL (80.0-100.0); Mean Platelet Volume 7.7; Monocytes # (A) 0.5 k/uL (0-1.0); Monocytes % (A) 6 %; Neutrophils # (A) 6.2 k/uL (1.3-7.7); Neutrophils % (A) 78 %; Platelet Count 167 k/uL (150-450); RBC 3.51 m/uL (4.30-5.90); RDW 14.5 % (11.5-15.5); WBC 7.9 k/uL (3.8-10.6)
[2024-10-02 09:09] LABS: ALT 14 U/L (4-49); AST 35 U/L (17-59); African American GFR (CKD) >90 (>60 ml/min/1.73 sqM); Alkaline Phosphatase 894 U/L (38-126); Anion Gap 9 mmol/L; Blood Urea Nitrogen 19 mg/dL (9-20); Calcium 9.1 mg/dL (8.4-10.2); Carbon Dioxide 24 mmol/L (22-30); Chloride 103 mmol/L (98-107); Glucose 157 mg/dL (74-99); Non-African American GFR(CKD) >90 (>60 ml/min/1.73 sqM); Sodium 136 mmol/L (137-145); Total Bilirubin 1.1 mg/dL (0.2-1.3); Total Protein 6.9 g/dL (6.3-8.2)
[2024-10-02] MEDS: MORPHINE SULFATE 4 MG/ML SYRINGE IVP STA (09:17)
--- NOTE | 2024-10-02 10:27 | CT ---
EXAMINATION TYPE: CT abdomen pelvis w con DATE OF EXAM: 10/02/2024 9:41 AM COMPARISON: 11/13/2019 10/19/2020 CLINICAL INDICATION: Male, 63 years old with history of lbp, prostate ca, Lower back pain TECHNIQUE: Axial images were obtained from above the diaphragm to the pubic rami in the axial plane a t 5 mm thick sections. Reconstructed images are reviewed on the computer in the coronal plane. CONTRAST: 100 mL of Isovue 300. Study performed without Oral Contrast DLP: 2229.8 mGycm, Automated exposure control for dose reduction was used. FINDINGS: Limited CT sections are obtained the lung bases. Multiple lung base nodules are present. Largest lef t lung may be in the posterior left lung base pleural margin measuring 1.3 cm. No suspicious infiltr ates are evident. There is likely enlarged right hilar adenopathy. Enlarged Subcarinal adenopathy is not excluded. CT chest for complete evaluation is recommended. CT ABDOMEN: Liver: Normal Spleen: Prominent measuring 18.2 cm. Normal less than 12.5 cm Pancreas: Normal Adrenal glands: The adrenal glands are normal. Gallbladder: Normal Kidneys: No masses are evident. Some mild right hydronephrosis is present. Hydroureter extending to t he urinary bladder is present. No obstructing renal stones or ureteral stones evident. There may be s ome wall thickening of the posterior inferior urinary bladder which could be related to the patient's prostate cancer affecting the ureteral vesicle junction. No cysts are present. Aorta: Vascular calcification is within the aorta. Inferior vena cava: Normal. CT PELVIS: There is an anterior abdominal wall hernia small portion of small bowel loop extending int o this area. The opening 1.9 cm. Mesenteric fat is also present is periumbilical hernia. No obstructi on is identified. Loops of bowel within the abdomen and pelvis are normal. Diverticulosis without acute diverticulitis is within the proximal sigmoid colon. The study is without oral contrast limiting bowel evaluation . Appendix: Normal as visualized. Urinary bladder: Some mild wall thickening appears to be along the posterior inferior urinary bladder . Right ureter is somewhat prominent. Left ureter is unremarkable. Genitourinary structures: Prostate is slightly prominent with inferior impression on the urinary blad juli Osseous structures: No suspicious lytic or sclerotic lesions. Some increased sclerosis along the left acetabulum may be related to degenerative change. Degenerative changes are noted in the L5-S1 facets . Spondylolysis of L5. Old right lower rib fractures within the field of are evident. There are some nonunion of right posterior lateral rib fractures. IMPRESSION: 1. Multiple bilateral pulmonary nodules. Largest on the left measures 1.3 cm. Largest on the right m easures 2.0 cm. Right hilar and likely some enlarged mediastinal adenopathy is present. Workup for pu lmonary metastasis is recommended with CT chest. 2. Anterior abdominal wall hernia in the periumbilical region with a small loop of nonobstructed smal l bowel involvement. 3. Mild right hydronephrosis and hydroureter. This may be related to some wall thickening at the infe rior posterior urinary bladder. No obstructing renal or ureteral stones are evident. [facility], , 10/02/2024 10:25 AM
[2024-10-02] MEDS: ACET/COD 300 MG/30 MG STARTER PACK 6 TAB BTL PO STA (11:48)
[2024-10-02 11:51] VITALS: BP 124/71; PULSE 92
== END 2024-10-02 11:51 | disposition home or self-care (01) ==
LOC: EC 07:22
DX: N39.0 Urinary tract infection, site not specified (principal); R91.1 Solitary pulmonary nodule; Z85.46 Personal history of malignant neoplasm of prostate
CPT/HCPCS: 36415; 80053; 85025; 85610; 85730; 81001; 87086; 74177; 99284; 96374; J2270; Q9967

== ENCOUNTER 2024-10-12 13:39 | Inpatient (IN) | payer MEDICARE, BC ==
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
[2024-10-12] MEDS: HYDROmorphone 0.5 MG/0.5 ML SYRINGE IVP STA ×2 (15:03→15:48)
[2024-10-12 15:11] LABS: Basophils % (A) 0 %; Eosinophils # (A) 0.2 k/uL (0-0.7); Eosinophils % (A) 2 %; HGB 10.5 gm/dL (13.0-17.5); Lymphocytes # (A) 0.4 k/uL (1.0-4.8); Lymphocytes % (A) 4 %; MCHC 33.8 g/dL (31.0-37.0); MCV 82.9 fL (80.0-100.0); Mean Platelet Volume 7.1; Monocytes # (A) 0.4 k/uL (0-1.0); Monocytes % (A) 5 %; Neutrophils # (A) 8.3 k/uL (1.3-7.7); Neutrophils % (A) 89 %; Platelet Count 234 k/uL (150-450); RBC 3.75 m/uL (4.30-5.90); RDW 14.4 % (11.5-15.5); WBC 9.3 k/uL (3.8-10.6)
[2024-10-12 15:27] LABS: ALT 18 U/L (4-49); AST 39 U/L (17-59); African American GFR (CKD) 64 (>60 ml/min/1.73 sqM); Albumin 4.3 g/dL (3.5-5.0); Alkaline Phosphatase 1095 U/L (38-126); Anion Gap 13 mmol/L; Blood Urea Nitrogen 17 mg/dL (9-20); Carbon Dioxide 22 mmol/L (22-30); Chloride 98 mmol/L (98-107); Glucose 124 mg/dL (74-99); Non-African American GFR(CKD) 56 (>60 ml/min/1.73 sqM); Potassium 5.5 mmol/L (3.5-5.1); Sodium 133 mmol/L (137-145); Total Bilirubin 0.8 mg/dL (0.2-1.3); Total Protein 7.4 g/dL (6.3-8.2)
[2024-10-12] MEDS: IBUPROFEN 600 MG TAB PO STA (15:33)
[2024-10-12] MEDS: ACETAMINOPHEN TAB 500 MG TAB PO STA (15:33)
[2024-10-12] MEDS: cefTRIAXone IN SWFI 1,000 MG/10 ML SYRINGE IVP STA (15:34)
[2024-10-12 15:45] LABS: Appearance,Urine Cloudy (Clear); Bilirubin,Urine Negative (Negative); Blood,Urine Large (Negative); Color,Urine Yellow; Glucose,Urine (UA) Negative (Negative); Ketones,Urine Negative (Negative); Leukocyte Esterase,Urine Moderate (Negative); Mucus,Urine Rare /hpf; Nitrite,Urine Negative (Negative); Protein,Urine Trace (Negative); RBC,Urine >182 /hpf (0-5); Specific Gravity,Urine 1.043 (1.001-1.035); Squamous Epithelial Cell,Urine <1 /hpf (0-4); Urobilinogen,Urine <2.0 mg/dL (<2.0); WBC,Urine 43 /hpf (0-5)
[2024-10-12] MEDS: SODIUM CHLORIDE 0.9% 1,000 ML IV ONE (17:05)
[2024-10-12] MEDS: KETOROLAC 15 MG/ML 1 ML VIAL IVP SCH (17:07)
[2024-10-12] MEDS: HYDROmorphone 0.5 MG/0.5 ML SYRINGE IVP PRN (19:48)
[2024-10-12] MEDS: metFORMIN 500 MG TAB PO SCH (21:26)
[2024-10-12] MEDS: HYDROmorphone 1 MG/ML 1 ML SYRINGE IVP PRN (23:33)
[2024-10-13] MEDS: SODIUM CHLORIDE 0.9% 1,000 ML IV SCH (04:06)
--- NOTE | 2024-10-13 04:47 | CT ---
EXAM: CT Angiography Chest With Intravenous Contrast CLINICAL HISTORY: ITS.REASON CT Reason: D-dimer result of 3.85, provider ordered TECHNIQUE: Axial computed tomographic angiography images of the chest with intravenous contrast. CTDI is 31 mGy and DLP is 907.8 mGy-cm. This CT exam was performed using one or more of the following dose reduction techniques: automated exposure control, adjustment of the mA and/or kV according to patient size, and/or use of iterative reconstruction technique. MIP reconstructed images were created and reviewed. COMPARISON: No relevant prior studies available. FINDINGS: Pulmonary arteries: Unremarkable. No pulmonary embolism. Aorta: Atherosclerotic changes of the aorta. No thoracic aortic aneurysm. Lungs: Multiple bilateral pulmonary nodules, consistent with metastatic disease. Correlate for primary malignancy. No consolidation. Pleural space: Unremarkable. No significant effusion. No pneumothorax. Heart: Unremarkable. No cardiomegaly. No significant pericardial effusion. No evidence of RV dysfunction. Bones/joints: Degenerative changes of the spine. Old, healed right- sided rib fractures. No dislocation. Soft tissues: Unremarkable. Lymph nodes: Enlargement of central and bilateral hilar lymphadenopathy. Spleen: Splenomegaly. IMPRESSION: 1. Multiple bilateral pulmonary nodules, consistent with metastatic disease. Correlate for primary malignancy. 2. Enlargement of central and bilateral hilar lymphadenopathy. 3. Splenomegaly.
--- NOTE | 2024-10-13 07:40 | HP ---
HISTORY AND PHYSICAL HISTORY OF PRESENT ILLNESS: A 63-year-old white male, came to the hospital complaining of lower back pain, right leg pain, abdominal pressure into his back. Denies any bowel or bladder difficulty. He had a TURP procedure in August. Diagnosis of prostate cancer. He had a CAT scan of his chest negative for metastatic disease. Today, he states the pain worsened. It looks like it is in his bone on his bone scan throughout his bones and possibly into his lungs, and multiple pulmonary nodules. He had a low-grade fever, possibly rule out immunodeficiency infection, possibly UTI. Hematology is pending. Infectious disease is pending. Pulmonary is pending for pulmonary nodules. HOME MEDICINES: 1. Losartan/hydrochlorothiazide 100/12.5 one daily. 2. Lipitor 10 daily. 3. Flomax 0.4 b.i.d. 4. Norvasc 5 mg daily. 5. Catapres 0.1 daily. 6. Metformin 500 b.i.d. 7. Flexeril 10 b.i.d. 8. Mobic 15 daily. 9. Multivitamin daily. 10.Ozempic 0.25 weekly. 11.Bactrim every 12 hours. ALLERGIES: No known drug allergies. FAMILY HISTORY: Father had oral cancer. Mother had cancer of the breast. PHYSICAL EXAMINATION: VITAL SIGNS: Stable. Afebrile. HEENT: Pupils are equal, round, and reactive to light. LUNGS: Scattered wheeze and rhonchi. HEART: S1 and S2. ABDOMEN: Distended due to obesity. No tenderness. SKIN: No rash, excoriation or bruises. NEUROLOGIC: Alert and oriented x3. PSYCH: Fair mood and affect. LYMPHS: Negative. PSYCH: Negative. LABORATORY DATA: White count is 9.3, hemoglobin is 10.5, sodium 133, potassium 5.5. Potassium is elevated at 5.5. Sodium is low at 133, BUN is 17, creatinine 1.34, GFR 64, and hemoglobin is 10.5. ASSESSMENT: 1. Fever of unknown origin. 2. Metastatic cancer to the spine and lung. 3. Urinary retention. 4. Back pain. 5. Rule out urinary tract infection. Broad-spectrum Rocephin began. Infectious disease consult, Oncology consult, pain control. MMODL / IJN: [id number] /
[2024-10-13] MEDS: amLODIPine 5 MG TAB PO SCH (08:43)
[2024-10-13] MEDS: ATORVASTATIN 10 MG TAB PO SCH (08:43)
[2024-10-13] MEDS: TAMSULOSIN 0.4 MG CAP.ER.24H PO SCH (08:43)
[2024-10-13] MEDS: cloNIDine HCL 0.1 MG TAB PO SCH (08:43)
[2024-10-13] MEDS: MULTIVITAMINS, THERA 1 EACH TAB PO SCH (08:43)
[2024-10-13] MEDS: hydroCHLOROthiazide 12.5 MG CAP PO SCH (08:43)
[2024-10-13] MEDS: LOSARTAN 50 MG TAB PO SCH (08:43)
[2024-10-13] MEDS ORDERED: NON FORMULARY DRUG (Losartan/Hydrochlorothiazide [Losartan-Hctz 100-12.5 Mg Tab] 1 EACH Ta PO SCH (09:00)
[2024-10-13] MEDS ORDERED: NON FORMULARY DRUG (Omega-3/Dha/Epa/Fish Oil [Fish Oil 1,000 Mg Softgel] 1 EACH Capsule) PO SCH (09:00)
[2024-10-13 09:01] LABS: ALT 13 U/L (10-49); AST 37 U/L (14-35); Albumin 3.6 g/dL (3.8-4.9); Albumin/Globulin Ratio 1.44 Ratio (1.60-3.17); Alkaline Phosphatase 890 U/L (41-126); BUN/Creat Ratio 11.29 Ratio (12.00-20.00); Blood Urea Nitrogen 15.8 mg/dL (9.0-27.0); Calcium 8.3 mg/dL (8.7-10.3); Carbon Dioxide 24.2 mmol/L (21.6-31.8); Chloride 96 mmol/L (96-109); Globulin 2.5 g/dL (1.6-3.3); Glucose 115 mg/dL (70-110); Sodium 130 mmol/L (135-145); Total Bilirubin 0.7 mg/dL (0.3-1.2); Total Protein 6.1 g/dL (6.2-8.2)
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
[2024-10-13 10:18] LABS: Basophils # (A) 0.01 X 10*3/uL (0.00-0.10); Basophils % (A) 0.2 %; Eosinophils # (A) 0.22 X 10*3/uL (0.04-0.35); Eosinophils % (A) 5.1 %; HCT 28.1 % (39.6-50.0); HGB 8.6 g/dL (13.0-17.0); Lymphocytes # (A) 0.19 X 10*3/uL (0.90-5.00); Lymphocytes % (A) 4.4 %; MCH 26.3 pg (27.0-32.0); MCHC 30.6 g/dL (32.0-37.0); MCV 85.9 FL (80.0-97.0); Mean Platelet Volume 10.1 FL (9.5-12.2); Monocytes # (A) 0.37 X 10*3/uL (0.20-1.00); Monocytes % (A) 8.6 %; NRBC Per 100 WBC 0 X 10*3/uL (0.00-0.01); Neutrophils # (A) 3.48 X 10*3/uL (1.80-7.70); Neutrophils % (A) 80.8 %; Platelet Count 146 X 10*3/uL (140-440); RBC 3.27 X 10*6/uL (4.40-5.60); RDW 14.2 % (11.5-14.5); WBC 4.31 X 10*3/uL (4.50-10.00)
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
--- NOTE | 2024-10-13 11:46 | XR ---
EXAMINATION TYPE: XR chest 2V DATE OF EXAM: 10/13/2024 11:09 AM COMPARISON: Chest radiographs from 10/12/2024 CLINICAL INDICATION: Male, 63 years old with history of pneumonia; [facility] TECHNIQUE: XR chest 2V Frontal and lateral views of the chest. FINDINGS: Lungs/Pleura: Scattered subtle reticular and hazy opacities. No evidence of pneumothorax, focal conso lidation or pleural effusion. Pulmonary vascularity: Unremarkable. Heart/mediastinum: Cardiomediastinal silhouette is unremarkable. Musculoskeletal: No acute osseous pathology. There is fixation hardware in the lower cervical spine. IMPRESSION: Subtle scattered opacities which may represent an atypical pneumonia. [facility], , 10/13/2024 11:44 AM
[2024-10-13 16:49] VITALS: BMI 36.9
[2024-10-13] MEDS: MAGNESIUM HYDROXIDE 2,400 MG/30 ML CUP PO PRN (16:53)
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
[2024-10-13] MEDS: ZOLEDRONIC ACID 4 MG in SODIUM CHLORIDE 0.9% 100 ML IV ONE (17:37)
--- NOTE | 2024-10-13 19:19 | P.PN ---
Progress Note - Text Progress Note Date: 10/13/24 Hospital course: I am covering for Dr. Kosta Damon, who called me this evening not feeling wel l. October 13: Patient in the process of getting staging for his prostate cancer. TURP was done by Dr. Pino on September 15. Pathology showing poorly differentiated prostate adenocarcinoma. Ryan score of 10. He was having significantly low back pain. That times in the last few weeks he is not able to urinate. Patient now has a [place] catheter. Patient had a bowel movement day before. Appetite is fair. Up to the bathroom. Pulmonary has ordered interventional radiology consult for CT-guided biopsy of nodules in the chest. Active Medications Amlodipine Besylate (Amlodipine 5 Mg Tab) 5 mg PO DAILY [facility] Last Admin: 10/13/24 08:43 Dose: 5 mg Atorvastatin Calcium (Atorvastatin 10 Mg Tab) 10 mg PO DAILY [facility] Last Admin: 10/13/24 08:43 Dose: 10 mg Clonidine (Clonidine Hcl 0.1 Mg Tab) 0.1 mg PO DAILY [facility] Last Admin: 10/13/24 08:43 Dose: 0.1 mg Cyclobenzaprine HCl (Cyclobenzaprine 10 Mg Tab) 10 mg PO BID PRN PRN Reason: Pain Hydrochlorothiazide (Hydrochlorothiazide 12.5 Mg Cap) 12.5 mg PO DAILY [facility] Last Admin: 10/13/24 08:43 Dose: 12.5 mg Hydromorphone HCl (Hydromorphone 1 Mg/Ml 1 Ml Syringe) 1 mg IVP Q4HR PRN PRN Reason: Pain Last Admin: 10/12/24 23:33 Dose: 1 mg Ceftriaxone Sodium 2 gm/ (Sodium Chloride) 50 mls @ 100 mls/hr IVPB Q24HR [facility]; Protocol Last Admin: 10/13/24 08:43 Dose: 100 mls/hr Sodium Chloride (Saline 0.9%) 1,000 mls @ 100 mls/hr IV .Q10H [facility] Last Admin: 10/13/24 15:06 Dose: 100 mls/hr Ketorolac Tromethamine (Ketorolac 15 Mg/Ml 1 Ml Vial) 15 mg IVP Q6HR [facility] Stop: 10/17/24 16:59 Last Admin: 10/13/24 17:37 Dose: 15 mg Losartan Potassium (Losartan 50 Mg Tab) 100 mg PO DAILY [facility] Last Admin: 10/13/24 08:43 Dose: 100 mg Magnesium Hydroxide (Magnesium Hydroxide 2,400 Mg/30 Ml Cup) 2,400 mg PO BID PRN PRN Reason: Constipation Last Admin: 10/13/24 16:53 Dose: 2,400 mg Meloxicam (Meloxicam 7.5 Mg Tab) 15 mg PO DAILY [facility] Metformin HCl (Metformin 500 Mg Tab) 500 mg PO BID [facility] Last Admin: 10/13/24 08:51 Dose: Not Given Multivitamins (Multivitamins, Thera 1 Each Tab) 1 each PO DAILY [facility] Last Admin: 10/13/24 08:43 Dose: 1 each Non-Formulary Medication (Semaglutide [Ozempic]) 0.25 mg SQ NEGRETE [facility] Senna/Docusate Sodium (Sennosides-Docusate Sodium 1 Each Tab) 2 each PO BID [facility] Tamsulosin HCl (Tamsulosin 0.4 Mg Cap.Er.24h) 0.4 mg PO BID [facility] Last Admin: 10/13/24 08:43 Dose: 0.4 mg On examination: VITAL SIGNS: [98.3, 108, 17, 127 x 73, 97% room air] GENERAL APPEARANCE: BMI 37.0, laying bed awake a bit tired HEENT: Normal external appearance of nose and ear. Oral cavity normal EYES: Pupils equal. Conjunctiva normal. NECK: JVD not raised. Mass not palpable. RESPIRATORY: Respiratory effort increased, decreased breath sound mild wheezing CARDIOVASCULAR: First and second sounds normal. No edema. ABDOMEN: Soft. Distended liver and spleen not palpable. No tenderness. No mass palpable. [place] catheter PSYCHIATRY: Alert and oriented x3. Mood and affect with anxious INVESTIGATIONS, reviewed in the clinical context: October 13: White count 4.3 hemoglobin 8.6 platelets 446 sodium 130 potassium 5 creatinine 1.4 AST 37 ALT 13 alkaline phosphatase 890 Chest x-ray: Trachea some shifting to the right. Scattered opacities. Assessment plan: -Metastatic adenocarcinoma of the prostate to the bones. Ryan score of 10 Oncology following -Pulmonary nodules possibly metastatic disease. Not typically prostate does not go to the lungs. Per pulmonary CT-guided biopsy ordered -Acute low back pain from metastatic disease. Bone pain Pain management -Essential hypertension Amlodipine 5 mg a day. Cozaar 100 mg a day. -Hyperlipidemia Lipitor 10 mg a day -Diabetes mellitus type 2 Glucophage. Ozempic. -Obesity BMI 37
[2024-10-13] MEDS: SENNOSIDES-DOCUSATE SODIUM 1 EACH TAB PO SCH (20:09)
[2024-10-13] MEDS: ENOXAPARIN 40 MG/0.4 ML SYRINGE SQ SCH (20:10)
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
--- NOTE | 2024-10-14 10:02 | P.PN ---
Subjective Progress Note Date: 10/14/24 The patient is in the hospital with back pain. He is known to me for urine retention, TURP and a diagnosis of prostate cancer. Seen by another urologist but switched to my care in July and underwent TURP at that point in time. The cancer was high-grade and metastatic workup was obtained last week i dentifying diffuse bony metastasis. Whether this is the cause of his pain is indeterminate. Patient is feeling better today. He was urinating fine postoperatively but in the last week struggle again and is gone back into retention. Objective - Vital Signs Vital signs: Vital Signs Temp 98.3 F 10/14/24 07:05 Pulse 109 H 10/14/24 07:05 Resp 18 10/14/24 07:05 BP 144/74 10/14/24 07:05 Pulse Ox 95 10/14/24 07:05 FiO2 Intake & Output 10/13/24 10/14/24 10/14/24 18:59 06:59 18:59 Intake Total 480 1640 550 Output Total 1775 3450 Balance -1295 -1810 550 Weight 120.202 kg Intake: Intake, IV Titration 1100 Amount Sodium Chloride 0.9% 1, 1100 000 ml @ 100 mls/hr IV . Q10H [facility] Rx#:[id number] Oral 480 540 550 Output: Urine 1775 3450 Uretheral (Groves) 1600 Other: Voiding Method Indwelling Catheter Indwelling Catheter - Labs CBC & Chem 7: 10/13/24 05:30 10/13/24 05:30 Labs: Abnormal Lab Results - Last 24 Hours (Table) 10/13/24 Range/Units 05:30 WBC 4.31 L (4.50-10.00) X 10*3/uL RBC 3.27 L (4.40-5.60) X 10*6/uL Hgb 8.6 L (13.0-17.0) g/dL Hct 28.1 L (39.6-50.0) % MCH 26.3 L (27.0-32.0) pg MCHC 30.6 L (32.0-37.0) g/dL Lymphocytes # 0.19 L (0.90-5.00) X 10*3/uL Microbiology - Last 24 Hours (Table) 10/12/24 21:39 Urine Culture - Final Urine,Catheterized Assessment and Plan Assessment: Impression: Back pain possibly due to metastatic prostate cancer. Metastatic prostate cancer. Urine retention Suspect all of these problems are interrelated. The patient is going to need complete androgen blockade. This will be begun in our office is soon as he is discharged. We are awaiting final recommendations from oncology. This has been discussed with the patient and his [id number]. Time with Patient: Greater than 30
--- NOTE | 2024-10-14 11:41 | P.PN ---
Progress Note - Text Progress Note Date: 10/14/24 Hospital course: I am covering for Dr. Kosta Damon, who called me this evening not feeling wel l. October 13: Patient in the process of getting staging for his prostate cancer. TURP was done by Dr. Pino on September 15. Pathology showing poorly differentiated prostate adenocarcinoma. [place] score of 10. He was having significantly low back pain. That times in the last few weeks he is not able to urinate. Patient now has a Groves catheter. Patient had a bowel movement day before. Appetite is fair. Up to the bathroom. Pulmonary has ordered interventional radiology consult for CT-guided biopsy of nodules in the chest. October 14: Up in a recliner. and daughter at the bedside. Groves catheter is got some bloody urine. Patient is pending MRI and also CT-guided lung biopsy. Pain is somewhat better controlled. Tolerating diet. Per Dr. Pino patient need complete hormone suppression. This will be started outpatient. Active Medications Amlodipine Besylate (Amlodipine 5 Mg Tab) 5 mg PO DAILY [facility] Last Admin: 10/14/24 08:31 Dose: 5 mg Atorvastatin Calcium (Atorvastatin 10 Mg Tab) 10 mg PO DAILY [facility] Last Admin: 10/14/24 08:31 Dose: 10 mg Clonidine (Clonidine Hcl 0.1 Mg Tab) 0.1 mg PO DAILY [facility] Last Admin: 10/14/24 08:31 Dose: 0.1 mg Cyclobenzaprine HCl (Cyclobenzaprine 10 Mg Tab) 10 mg PO BID PRN PRN Reason: Pain Enoxaparin Sodium (Enoxaparin 40 Mg/0.4 Ml Syringe) 40 mg SQ DAILY [facility] Last Admin: 10/14/24 08:31 Dose: 40 mg Hydrochlorothiazide (Hydrochlorothiazide 12.5 Mg Cap) 12.5 mg PO DAILY [facility] Last Admin: 10/14/24 08:32 Dose: 12.5 mg Hydromorphone HCl (Hydromorphone 1 Mg/Ml 1 Ml Syringe) 1 mg IVP Q4HR PRN PRN Reason: Pain Last Admin: 10/12/24 23:33 Dose: 1 mg Ceftriaxone Sodium 2 gm/ (Sodium Chloride) 50 mls @ 100 mls/hr IVPB Q24HR [facility]; Protocol Last Admin: 10/14/24 08:32 Dose: 100 mls/hr Sodium Chloride (Saline 0.9%) 1,000 mls @ 100 mls/hr IV .Q10H [facility] Last Admin: 10/14/24 01:20 Dose: 100 mls/hr Ketorolac Tromethamine (Ketorolac 15 Mg/Ml 1 Ml Vial) 15 mg IVP Q6HR [facility] Stop: 10/17/24 16:59 Last Admin: 10/14/24 05:59 Dose: 15 mg Losartan Potassium (Losartan 50 Mg Tab) 100 mg PO DAILY [facility] Last Admin: 10/14/24 08:31 Dose: 100 mg Magnesium Hydroxide (Magnesium Hydroxide 2,400 Mg/30 Ml Cup) 2,400 mg PO BID PRN PRN Reason: Constipation Last Admin: 10/13/24 16:53 Dose: 2,400 mg Meloxicam (Meloxicam 7.5 Mg Tab) 15 mg PO DAILY [facility] Metformin HCl (Metformin 500 Mg Tab) 500 mg PO BID [facility] Last Admin: 10/13/24 08:51 Dose: Not Given Multivitamins (Multivitamins, Thera 1 Each Tab) 1 each PO DAILY [facility] Last Admin: 10/14/24 08:31 Dose: 1 each Non-Formulary Medication (Semaglutide [Ozempic]) 0.25 mg SQ NEGRETE [facility] Senna/Docusate Sodium (Sennosides-Docusate Sodium 1 Each Tab) 2 each PO BID [facility] Last Admin: 10/14/24 08:31 Dose: 2 each Tamsulosin HCl (Tamsulosin 0.4 Mg Cap.Er.24h) 0.4 mg PO BID [facility] Last Admin: 10/14/24 08:31 Dose: 0.4 mg On examination: VITAL SIGNS: 98.3, 109, 18, 144 x 74, 95% room air GENERAL APPEARANCE: BMI 37.0, up in recliner HEENT: Normal external appearance of nose and ear. Oral cavity normal EYES: Pupils equal. Conjunctiva normal. NECK: JVD not raised. Mass not palpable. RESPIRATORY: Respiratory effort increased, decreased breath sound CARDIOVASCULAR: First and second sounds normal. No edema. ABDOMEN: Soft. Distended liver and spleen not palpable. No tenderness. No mass palpable. Groves catheter-with some bloody urine PSYCHIATRY: Alert and oriented x3. Mood and affect with anxious INVESTIGATIONS, reviewed in the clinical context: October 13: White count 4.3 hemoglobin 8.6 platelets 446 sodium 130 potassium 5 creatinine 1.4 AST 37 ALT 13 alkaline phosphatase 890 Chest x-ray: Trachea some shifting to the right. Scattered opacities. Assessment plan: -Metastatic adenocarcinoma of the prostate to the bones. Ryan score of 10 Oncology following -Pulmonary nodules possibly metastatic disease. Not typically prostate does not go to the lungs. Per pulmonary CT-guided biopsy pending - bladder outflow obstruction. Recent TURP. Has a Groves catheter. Seen by Dr. Pino outpatient Seen by Dr. Pino. For outpatient hormone suppression treatment to be started. Continue Groves for now. -Hematuria. Groves catheter in place. Follow H&H -Acute low back pain from metastatic disease. Bone pain Pain management -Essential hypertension Amlodipine 5 mg a day. Cozaar 100 mg a day. -Hyperlipidemia Lipitor 10 mg a day -Diabetes mellitus type 2 Glucophage. Ozempic. -Obesity BMI 37 Discussed with the patient family at bedside. Awaiting MRI. Awaiting CT biopsy lung. Repeat labs tomorrow.
[2024-10-14] MEDS: ACETAMINOPHEN TAB 500 MG TAB PO PRN (13:03)
--- NOTE | 2024-10-14 17:10 | MR ---
EXAMINATION TYPE: MR tspine/lspine wo/w con DATE OF EXAM: 10/14/2024 4:48 PM COMPARISON: 10/02/2024. CLINICAL INDICATION: Male, 63 years old with history of met prostate carcinoma, new onset pain; PHH, met prostate carcinoma, new onset pain. TECHNIQUE: Multi planar, multi sequence imaging was performed utilizing: T1-weighted, T2-weighted, a nd turbo inversion recovery imaging of the thoracic and lumbar spine. IV Contrast: 12 mL Gadobutrol (None, if empty) FINDINGS: Alignment: The thoracic and lumbar vertebral bodies have preserved heights and alignment. Cord: The conus medullaris and the distal spinal cord appear unremarkable with regards to their signa l intensity and morphology. There is dural thickening posterior tor T11 measuring 29 x 7 mm.e hetero genous postcontrast enhancement present. Additionally at the anterior thecal sac of L5-S1 is soft tis al mass measuring 7.0 x 9.0 cm which demonstrate heterogenous postcontrast enhancement. Bones/Discs: Scattered abnormal bone lesions compatible with metastatic disease or low T1/higher T2 s ignal compared bone marrow. There is some mild bony edema and some of these lesions. No evidence for curvilinear line to suggest fracture. Heterogenous postcontrast enhancement of these lesions noted. THORACIC: No evidence significant spinal canal or neural foraminal stenosis. Spinal cord is within no rmal limits. LUMBAR: T12-L1: No evidence of significant spinal canal stenosis or neural foraminal stenosis. L1-L2: No evidence of significant spinal canal stenosis or neural foraminal stenosis. L2-L3: No evidence of significant spinal canal stenosis or neural foraminal stenosis. L3-L4: No evidence of significant spinal canal stenosis or neural foraminal stenosis. L4-L5: No evidence of significant spinal canal stenosis or neural foraminal stenosis. L5-S1: The disc is rounded posterior morphology without significant spinal canal stenosis. Facet join t arthropathy with mild to moderate neural foraminal stenosis. Enhancement around the sacrum and posterior aspect of L5 and S1 suspicious for dural metastatic disea se. Other findings: Right low paratracheal conglomerate lymph nodes as seen on CT imaging measuring 54 x 37 mm scattered pulmonary nodules are also seen. IMPRESSION: 1. Metastatic disease throughout the spine. No evidence for pathologic fracture. 2. No evidence for significant spinal canal or neural foraminal stenosis. 3. Dural thickening at the level of T11 posteriorly as well as near the anterior thecal sac at L5-S1 . Suspicious for dural metastases. [facility], , 10/14/2024 5:07 PM
[2024-10-14 19:00] LABS: Appearance,Urine Cloudy (Clear); Bilirubin,Urine Negative (Negative); Blood,Urine Large (Negative); Color,Urine Light Red; Glucose,Urine (UA) Negative (Negative); Ketones,Urine Negative (Negative); Leukocyte Esterase,Urine Large (Negative); Mucus,Urine Rare /hpf; Nitrite,Urine Negative (Negative); Protein,Urine 1+ (Negative); RBC,Urine >182 /hpf (0-5); Specific Gravity,Urine 1.017 (1.001-1.035); Urobilinogen,Urine <2.0 mg/dL (<2.0); WBC,Urine 41 /hpf (0-5)
[2024-10-14] MEDS: CYCLOBENZAPRINE 10 MG TAB PO PRN (20:36)
[2024-10-15 06:22] LABS: Basophils % (A) 0 %; Eosinophils # (A) 0.1 k/uL (0-0.7); Eosinophils % (A) 2 %; HCT 25.1 % (39.0-53.0); Hypochromasia Slight; Lymphocytes # (A) 0.5 k/uL (1.0-4.8); Lymphocytes % (A) 14 %; MCH 27.9 pg (25.0-35.0); MCHC 32.7 g/dL (31.0-37.0); MCV 85.3 fL (80.0-100.0); Mean Platelet Volume 7.7; Monocytes # (A) 0.3 k/uL (0-1.0); Monocytes % (A) 8 %; Neutrophils # (A) 2.6 k/uL (1.3-7.7); Neutrophils % (A) 73 %; Platelet Count 128 k/uL (150-450); RBC 2.94 m/uL (4.30-5.90); RDW 14.7 % (11.5-15.5); WBC 3.5 k/uL (3.8-10.6)
[2024-10-15 06:32] LABS: HGB 8.2 gm/dL (13.0-17.5)
[2024-10-15 06:58] LABS: African American GFR (CKD) >90 (>60 ml/min/1.73 sqM); Anion Gap 5 mmol/L; Blood Urea Nitrogen 14 mg/dL (9-20); Carbon Dioxide 26 mmol/L (22-30); Chloride 99 mmol/L (98-107); Glucose 132 mg/dL (74-99); Non-African American GFR(CKD) 83 (>60 ml/min/1.73 sqM); Potassium 4.5 mmol/L (3.5-5.1); Sodium 130 mmol/L (137-145)
[2024-10-15 07:36] LABS: Calcium 6.4 mg/dL (8.4-10.2)
[2024-10-15] MEDS: CALCIUM CARB-VIT D 500 MG-5 MCG TAB PO SCH ×2 (10:41→20:09)
[2024-10-15 12:36] LABS: Glucose,Whole Blood 196 mg/dL (70-110)
--- NOTE | 2024-10-15 16:01 | P.PN ---
Subjective Progress Note Date: 10/14/24 Principal diagnosis: Reason for follow-up is fever/UTI Patient is a 63-year-old male with a past medical history significant for hypertension and gout prostate cancer presenting to the hospital for evaluation of lower abdominal discomfort pressure and did have difficulty urination with some burning, did have a fever concerning for urinary tract infection. On today's evaluation that is 10/14/2024,the patient did spike another fever of 101.5 F this afternoon, patient denies having any chest pain or shortness of breath or cough no nausea vomiting abdominal pain or diarrhea.Patient is currently on room air. Patient did not have any lab draw today repeat UA is positive cultures currently pending. Objective - Vital Signs Vital signs: Vital Signs Temp 101.5 F H 10/14/24 12:05 Pulse 109 H 10/14/24 07:05 Resp 18 10/14/24 07:05 BP 144/74 10/14/24 07:05 Pulse Ox 95 10/14/24 07:05 FiO2 Intake & Output 10/13/24 10/14/24 10/14/24 18:59 06:59 18:59 Intake Total 480 1640 550 Output Total 1775 3450 Balance -1295 -1810 550 Weight 120.202 kg Intake: Intake, IV Titration 1100 Amount Sodium Chloride 0.9% 1, 1100 000 ml @ 100 mls/hr IV . Q10H [facility] Rx#:[id number] Oral 480 540 550 Output: Urine 1775 3450 Uretheral (Groves) 1600 Other: Voiding Method Indwelling Catheter Indwelling Catheter Indwelling Catheter - Exam GENERAL DESCRIPTION: An elderly male up in the chair in no distress RESPIRATORY SYSTEM: Unlabored breathing , decreased breath sounds at bases HEART: S1 S2 regular rate and rhythm , ABDOMEN: Soft , no tenderness EXTREMITIES: No edema feet - Labs CBC & Chem 7: 10/15/24 05:45 10/15/24 05:45 Labs: Abnormal Lab Results - Last 24 Hours (Table) 10/13/24 Range/Units 11:14 Total PSA 29.8 H (<=4.0) ng/mL Microbiology - Last 24 Hours (Table) 10/12/24 21:39 Urine Culture - Final Urine,Catheterized Assessment and Plan (1) Urinary tract infection Current Visit: No Status: Acute Code(s): N39.0 - URINARY TRACT INFECTION, SITE NOT SPECIFIED SNOMED Code(s): 63667896 Plan: 1patient with a low-grade fever in this patient presented to hospital with lower abdominal discomfort difficulty urination and some burning positive UA likely etiology will be the urinary source and this patient has been recently diagnosed with the metastatic prostate cancer and did have a recent TURP procedure 2 patient did spike another fever, urine and blood culture have been requested results will be followed continue with Ghislaine Dictation was produced using shopandsave dictation software. please excuse any grammatical, word or spelling errors. Time with Patient: Less than 30
--- NOTE | 2024-10-15 16:02 | P.PN ---
Subjective Progress Note Date: 10/15/24 Principal diagnosis: Reason for follow-up is fever/UTI Patient is a 63-year-old male with a past medical history significant for hypertension and gout prostate cancer presenting to the hospital for evaluation of lower abdominal discomfort pressure and did have difficulty urination with some burning, did have a fever concerning for urinary tract infection. On today's evaluation that is 10/15/2024,the patient did have improvement in his fever pattern with a temperature of 100.7 degrees Fahrenheit at 2 AM the patient is afebrile since then, patient is on room air not requiring supplemental oxygen and denies any shortness of breath no chest pain or cough.Patient denies having any nausea or vomiting, no abdominal pain and no diarrhea has been reported. Patient white count is 3.5, creatinine 0.96 blood and urine culture repeat yesterday currently pending Objective - Vital Signs Vital signs: Vital Signs Temp 98.5 F 10/15/24 08:06 Pulse 98 10/15/24 08:06 Resp 17 10/15/24 08:06 BP 115/72 10/15/24 08:06 Pulse Ox 96 10/15/24 08:06 FiO2 Intake & Output 10/14/24 10/15/24 10/15/24 18:59 06:59 18:59 Intake Total 550 540 Output Total 900 2225 Balance -350 -1685 Intake: Oral 550 540 Output: Urine 900 2225 Other: Voiding Method Indwelling Catheter Indwelling Catheter Indwelling Catheter - Exam GENERAL DESCRIPTION: An elderly male up in the chair in no distress RESPIRATORY SYSTEM: Unlabored breathing , decreased breath sounds at bases HEART: S1 S2 regular rate and rhythm , ABDOMEN: Soft , no tenderness EXTREMITIES: No edema feet - Labs CBC & Chem 7: 10/15/24 05:45 10/15/24 05:45 Labs: Abnormal Lab Results - Last 24 Hours (Table) 10/13/24 10/14/24 10/15/24 Range/Units 11:14 14: 05:45 WBC 3.5 L (3.8-10.6) k/uL RBC 2.94 L (4.30-5.90) m/uL Hgb 8.2 L D (13.0-17.5) gm/dL Hct 25.1 L (39.0-53.0) % Plt Count 128 L (150-450) k/uL Lymphocytes # 0.5 L (1.0-4.8) k/uL Sodium (137-145) mmol/L Glucose (74-99) mg/dL Calcium (8.4-10.2) mg/dL Total PSA 29.8 H (<=4.0) ng/mL Urine Protein 1+ H (Negative) Urine Blood Large H (Negative) Ur Leukocyte Esterase Large H (Negative) Urine RBC >182 H (0-5) /hpf Urine WBC 41 H (0-5) /hpf Urine Mucus Rare H (None) /hpf 10/15/24 Range/Units 05:45 WBC (3.8-10.6) k/uL RBC (4.30-5.90) m/uL Hgb (13.0-17.5) gm/dL Hct (39.0-53.0) % Plt Count (150-450) k/uL Lymphocytes # (1.0-4.8) k/uL Sodium 130 L (137-145) mmol/L Glucose 132 H (74-99) mg/dL Calcium 6.4 L* (8.4-10.2) mg/dL Total PSA (<=4.0) ng/mL Urine Protein (Negative) Urine Blood (Negative) Ur Leukocyte Esterase (Negative) Urine RBC (0-5) /hpf Urine WBC (0-5) /hpf Urine Mucus (None) /hpf Assessment and Plan (1) Urinary tract infection Current Visit: No Status: Acute Code(s): N39.0 - URINARY TRACT INFECTION, SITE NOT SPECIFIED SNOMED Code(s): 49224874 Plan: 1patient with a low-grade fever in this patient presented to hospital with lower abdominal discomfort difficulty urination and some burning positive UA likely etiology will be the urinary source and this patient has been recently diagnosed with the metastatic prostate cancer and did have a recent TURP procedure 2 patient did have improvement in the fever pattern initial urine was reported negative repeat blood and urine culture negative continue with Rocephin Dictation was produced using [employer] dictation software. please excuse any grammatical, word or spelling errors. Time with Patient: Less than 30
--- NOTE | 2024-10-15 17:10 | P.PN ---
Subjective Progress Note Date: 10/15/24 Principal diagnosis: metastatic prostate carcinoma In follow-up today patient is sitting up in the chair. He is reporting good pain control right now on IV medications. He is mostly noted to be taking the anti-inflammatory medications. No fevers, nausea, numbness or tingling. States he maintains sensation of BM, he was seen by Dr. Pino and Groves catheter was placed due to difficulty urinating. He had the MRI of the T and L-spine this was reviewed with him. His is at the bedside. Patient tolerated Zometa. No other acute complaints. Objective - Vital Signs Vital signs: Vital Signs Temp 98.8 F 10/15/24 13:24 Pulse 98 10/15/24 13:24 Resp 18 10/15/24 13:24 BP 114/68 10/15/24 13:24 Pulse Ox 93 L 10/15/24 13:24 FiO2 Intake & Output 10/14/24 10/15/24 10/15/24 18:59 06:59 18:59 Intake Total 550 540 Output Total 900 2225 Balance -350 -1685 Intake: Oral 550 540 Output: Urine 900 2225 Other: Voiding Method Indwelling Catheter Indwelling Catheter Indwelling Catheter - Constitutional General appearance: Present: average body habitus, cooperative, no acute distress - EENT Eyes: Present: anicteric sclerae, EOMI ENT: Present: hearing grossly normal - Respiratory Respiratory: bilateral: CTA - Cardiovascular Rhythm: regular - Peripheral edema leg Peripheral Edema: bilateral: None - Integumentary Integumentary: Present: pale - Neurologic Neurologic: Present: CNII-XII intact - Musculoskeletal Musculoskeletal: Present: generalized weakness, strength equal bilaterally - Psychiatric Psychiatric: Present: A&O x's 3, appropriate affect, intact judgment & insight - Labs CBC & Chem 7: 10/15/24 05:45 10/15/24 05:45 Labs: Abnormal Lab Results - Last 24 Hours (Table) 10/14/24 10/15/24 10/15/24 Range/Units 14:25 05:45 05:45 WBC 3.5 L (3.8-10.6) k/uL RBC 2.94 L (4.30-5.90) m/uL Hgb 8.2 L D (13.0-17.5) gm/dL Hct 25.1 L (39.0-53.0) % Plt Count 128 L (150-450) k/uL Lymphocytes # 0.5 L (1.0-4.8) k/uL Sodium 130 L (137-145) mmol/L Glucose 132 H (74-99) mg/dL POC Glucose (mg/dL) (70-110) mg/dL Calcium 6.4 L* (8.4-10.2) mg/dL Urine Protein 1+ H (Negative) Urine Blood Large H (Negative) Ur Leukocyte Esterase Large H (Negative) Urine RBC >182 H (0-5) /hpf Urine WBC 41 H (0-5) /hpf Urine Mucus Rare H (None) /hpf 10/15/24 Range/Units 12:32 WBC (3.8-10.6) k/uL RBC (4.30-5.90) m/uL Hgb (13.0-17.5) gm/dL Hct (39.0-53.0) % Plt Count (150-450) k/uL Lymphocytes # (1.0-4.8) k/uL Sodium (137-145) mmol/L Glucose (74-99) mg/dL POC Glucose (mg/dL) 196 H (70-110) mg/dL Calcium (8.4-10.2) mg/dL Urine Protein (Negative) Urine Blood (Negative) Ur Leukocyte Esterase (Negative) Urine RBC (0-5) /hpf Urine WBC (0-5) /hpf Urine Mucus (None) /hpf - Imaging and Cardiology MRI of the T and L-spine report reviewed Assessment and Plan (1) Prostate carcinoma Current Visit: Yes Status: Acute Priority: High Code(s): C61 - MALIGNANT NEOPLASM OF PROSTATE SNOMED Code(s): 458493683 (2) Back pain Current Visit: Yes Status: Acute Priority: High Code(s): M54.9 - DORSALGIA, UNSPECIFIED SNOMED Code(s): 060882946 (3) Fever of unknown origin Current Visit: Yes Status: Acute Priority: High Code(s): R50.9 - FEVER, UNSPECIFIED SNOMED Code(s): 6473910 Plan: Metastatic prostate carcinoma, bone mets, also lung and mediastinal LAD -Patient had a biopsy with Dr. Pino 09/15/2024. Poorly differentiated adenocarcinoma involving 85 to 90% of the tissue submitted. Perineural invasion is present, Ryan score 5+5 = 10 -Back pain, bone metastases on imaging. MRI of the T and L-spine reporting metastatic disease throughout the spine, no evidence for pathological fracture. No significant spinal canal or neuroforaminal stenosis. Dural thickening at the level of T11 posteriorly measuring 29 x 7 mm, as well as near the anterior t hecal sac at L5-S1 soft tissue mass measuring 7 x 9 cm, suspicious for dural metastases. Right lower paratracheal conglomerate lymph nodes seen on CT measuring 54 x 37 mm. Scattered pulmonary nodules also seen. -Current pain medication regimen is adequate. Patient is mostly using anti-inflammatories, we will have to figure out a regimen that patient can tolerate without destroying the GI tract. -Medications for present prevention of narcotic induced constipation continue -Dose of zometa given for bone mets. Calcium level down, oral calcium vitamin D supplement ordered Fever of unknown origin -Pancultures pending -Empiric antibiotics ordered -Infectious disease following Discussed with patient and his plan of care. #1 Currently pending lung biopsy. While bone metastasis is a rather common finding with metastatic prostate cancer, the pulmonary nodules are a bit unusual. It is better to have a biopsy and know the origin of these lesions. They verbalized understanding. #2 recommendations for treatment of prostate cancer per Urology. Starting an ARB, continuing Zometa or rank ligand inhibitor. #3 Rad Onc has been consulted to assess patient for possible palliative treatment for painful bone metastases. #4 It is recommended that tissue specimen to be set for next generation sequencing as well as PD-L1 testing. ARB 7 mutations, if found, are significant in that angiotensin blockers did not work as well in prostate cancers that have this mutation, patient may require chemo if that is found. All of this was reviewed with the patient and his . They verbalized understanding all of the recommendations. Will CC Dr. Pino a note as well. Time with Patient: Greater than 30
--- NOTE | 2024-10-15 19:16 | P.PN ---
Progress Note - Text Progress Note Date: 10/15/24 Hospital course: I am covering for Dr. Kosta Damon, who called me this evening not feeling wel l. October 13: Patient in the process of getting staging for his prostate cancer. TURP was done by Dr. Pino on September 15. Pathology showing poorly differentiated prostate adenocarcinoma. Rollingstone score of 10. He was having significantly low back pain. That times in the last few weeks he is not able to urinate. Patient now has a Groves catheter. Patient had a bowel movement day before. Appetite is fair. Up to the bathroom. Pulmonary has ordered interventional radiology consult for CT-guided biopsy of nodules in the chest. October 14: Up in a recliner. and daughter at the bedside. Groves catheter is got some bloody urine. Patient is pending MRI and also CT-guided lung biopsy. Pain is somewhat better controlled. Tolerating diet. Per Dr. Pino patient need complete hormone suppression. This will be started outpatient. October 15: Up in recliner. MRI of the spine showing multiple metastasis. Hematuria in the Gorves catheter is improved. Pending CT scan of the lung b iopsy. Tolerating a diet. Current pain medications are working well. Patient seen by radiation oncology. Hold off palliative treatment for bone per them for now. Patient spiked fever yesterday evening. Urine culture from the negative. Patient been on IV ceftriaxone. Likely cause UTI. On IV ceftriaxone. Active Medications Acetaminophen (Acetaminophen Tab 500 Mg Tab) 500 mg PO Q6HR PRN PRN Reason: Fever and/ or Pain Last Admin: 10/14/24 13:03 Dose: 500 mg Amlodipine Besylate (Amlodipine 5 Mg Tab) 5 mg PO DAILY [facility] Last Admin: 10/15/24 08:06 Dose: 5 mg Atorvastatin Calcium (Atorvastatin 10 Mg Tab) 10 mg PO DAILY [facility] Last Admin: 10/15/24 08:06 Dose: 10 mg Calcium Carbonate (Calcium Carb-Vit D 500 Mg-5 Mcg Tab) 1 each PO DAILY [facility] Last Admin: 10/15/24 10:41 Dose: 1 each Clonidine (Clonidine Hcl 0.1 Mg Tab) 0.1 mg PO DAILY [facility] Last Admin: 10/15/24 08:06 Dose: 0.1 mg Cyclobenzaprine HCl (Cyclobenzaprine 10 Mg Tab) 10 mg PO BID PRN PRN Reason: Pain Last Admin: 10/14/24 20:36 Dose: 10 mg Enoxaparin Sodium (Enoxaparin 40 Mg/0.4 Ml Syringe) 40 mg SQ DAILY [facility] Last Admin: 10/15/24 08:07 Dose: 40 mg Hydromorphone HCl (Hydromorphone 1 Mg/Ml 1 Ml Syringe) 1 mg IVP Q4HR PRN PRN Reason: Pain Last Admin: 10/15/24 10:44 Dose: 1 mg Ceftriaxone Sodium 2 gm/ (Sodium Chloride) 50 mls @ 100 mls/hr IVPB Q24HR [facility]; Protocol Last Admin: 10/15/24 08:07 Dose: 100 mls/hr Sodium Chloride (Saline 0.9%) 1,000 mls @ 100 mls/hr IV .Q10H [facility] Last Admin: 10/15/24 12:14 Dose: 100 mls/hr Ketorolac Tromethamine (Ketorolac 15 Mg/Ml 1 Ml Vial) 15 mg IVP Q6HR [facility] Stop: 10/17/24 16:59 Last Admin: 10/15/24 17:53 Dose: 15 mg Losartan Potassium (Losartan 50 Mg Tab) 100 mg PO DAILY [facility] Last Admin: 10/15/24 08:06 Dose: 100 mg Magnesium Hydroxide (Magnesium Hydroxide 2,400 Mg/30 Ml Cup) 2,400 mg PO BID PRN PRN Reason: Constipation Last Admin: 10/13/24 16:53 Dose: 2,400 mg Meloxicam (Meloxicam 7.5 Mg Tab) 15 mg PO DAILY [facility] Metformin HCl (Metformin 500 Mg Tab) 500 mg PO BID [facility] Last Admin: 10/15/24 08:06 Dose: 500 mg Multivitamins (Multivitamins, Thera 1 Each Tab) 1 each PO DAILY [facility] Last Admin: 10/15/24 08:06 Dose: 1 each Non-Formulary Medication (Semaglutide [Ozempic]) 0.25 mg SQ NEGRETE [facility] Senna/Docusate Sodium (Sennosides-Docusate Sodium 1 Each Tab) 2 each PO BID [facility] Last Admin: 10/15/24 08:06 Dose: 2 each Tamsulosin HCl (Tamsulosin 0.4 Mg Cap.Er.24h) 0.4 mg PO BID [facility] Last Admin: 10/15/24 08:06 Dose: 0.4 mg On examination: VITAL SIGNS: Tmax 101.3, now 98.8, 98, 18, 114 x 68, 93% room air GENERAL APPEARANCE: BMI 37.0, up in recliner HEENT: Normal external appearance of nose and ear. Oral cavity normal EYES: Pupils equal. Conjunctiva normal. NECK: JVD not raised. Mass not palpable. RESPIRATORY: Respiratory effort increased, decreased breath sound CARDIOVASCULAR: First and second sounds normal. No edema. ABDOMEN: Soft. Distended liver and spleen not palpable. No tenderness. No mass palpable. Groves catheter-blood cleared up PSYCHIATRY: Alert and oriented x3. Mood and affect with anxious INVESTIGATIONS, reviewed in the clinical context: October 15: White count 3.5 hemoglobin 8.2 platelets 128 potassium 4.5 creatinine 0.96 calcium 6.4 Thoracolumbar MRI: Metastatic disease throughout the spine. No pathologic fracture. No significant spinal canal or neural foraminal stenosis. Dural thickening at the level of T11. October 13: White count 4.3 hemoglobin 8.6 platelets 446 sodium 130 potassium 5 creatinine 1.4 AST 37 ALT 13 alkaline phosphatase 890 Chest x-ray: Trachea some shifting to the right. Scattered opacities. Assessment plan: -Metastatic adenocarcinoma of the prostate to the bones. Rollingstone score of 10 MRI of thoracolumbar spine positive for metastatic disease throughout the spine including the dura. Oncology following -Acute UTI secondary to Groves catheter causing sepsis IV ceftriaxone -Pulmonary nodules possibly metastatic disease. Not typically prostate does not go to the lungs. Pending CT-guided biopsy, hopefully tomorrow - bladder outflow obstruction. Recent TURP. Has a Groves catheter. Seen by Dr. Pino outpatient Seen by Dr. Pino. For outpatient hormone suppression treatment to be started. Continue Groves for now. -Hematuria. Groves catheter in place. Follow H&H -Acute low back pain from metastatic disease. Bone pain Radiation oncology consulted. Hold of radiation treatment for now. Pain management adequate -Hypocalcemia Os-Joe 500 vit D added -Essential hypertension Amlodipine 5 mg a day. Cozaar 100 mg a day. -Hyperlipidemia Lipitor 10 mg a day -Diabetes mellitus type 2 Glucophage. Ozempic. -Obesity BMI 37 On IV ceftriaxone. Blood cultures pending. Lung biopsy tomorrow. Discussed with patient. Os-Joe vitamin D added
--- NOTE | 2024-10-16 09:28 | P.PN ---
Subjective Progress Note Date: 10/16/24 Principal diagnosis: Multiple bilateral pulmonary nodules next to the thoracic wall likely metastatic disease, prostate less likely per hematology oncology Metastatic prostate cancer with high alkaline phos. Morbid obesity Hypertension hypertensive cardiovascular disease Dyslipidemia Type 2 diabetes mellitus with hyperglycemia October 16, 2024, patient seen eval examined during rounds labs reviewed medications reviewed care plan discussed, dimensional radiology have declined doing lung biopsy, and deferred due to pulmonary service CT scan of the chest reviewed finding discussed with the patient at length also discussed with hematology oncology service they are in consideration of second primary. Patient is having low-grade temperature otherwise afebrile, oxygen saturation 95%, hemodynamic status stable blood pressure last check is 140/70 respiratory 18 heart rate is 94. Urine culture blood culture no growth so far labs reviewed white cell count 3.5 hemoglobin hematocrit 8.2 sodium is 130 potassium 3.5 BUN/creatinine is 14/0.96 total PSA is 29.8 63-year-old male who is a non-smoker presented to the emergency department with low back pain, patient has his primary care physician in [facility] but however he is recently moving his healthcare into the area with established relationship with urology, patient is s/p TURP found to have prostate cancer in August 2024. Reportedly he had a CAT scan done at that time no pulmonary lesions were seen. Patient presented emergency department on October 12 with increasing pain in the back extremities, he had a CT scan done showed multiple bilateral pulmonary nodules, hematology oncology has been evaluating the patient. Past medical history significant for dyslipidemia, BPH, hypertension hypertensive cardiovascular disease, type 2 diabetes mellitus with hyperglycemia, his labs are significant for hemoglobin of 10.5/31 came down to 8.5/28 white cell count 4.3 platelet count 146, D-dimer 385, sodium is 130 potassium 5 BUN/creatinine is 15/1.4. His alk phos is 890 urine is cloudy with many WBCs RBCs Objective - Vital Signs Vital signs: Vital Signs Temp 99.3 F 10/16/24 07:46 Pulse 94 10/16/24 07:46 Resp 18 10/16/24 07:46 BP 138/72 10/16/24 07:46 Pulse Ox 95 10/16/24 07:46 FiO2 Intake & Output 10/15/24 10/16/24 10/16/24 18:59 06:59 18:59 Intake Total 3000 Output Total 2200 Balance 3000 -2200 Intake: Intake, IV Titration 1200 Amount Sodium Chloride 0.9% 1, 1150 000 ml @ 100 mls/hr IV . Q10H [facility] Rx#:[id number] cefTRIAXone 2 gm In 50 Sodium Chloride 0.9% 50 ml @ 100 mls/hr IVPB Q24HR [facility] Rx#:[id number] Oral 1800 Output: Urine 2200 Other: Voiding Method Indwelling Catheter Indwelling Catheter - Exam - Constitutional General appearance: mild distress, morbidly obese - EENT Eyes: EOMI, PERRLA Ears: bilateral: normal - Neck Neck: normal ROM Carotids: bilateral: upstroke normal Thyroid: negative: normal size - Respiratory Respiratory: bilateral: CTA - Cardiovascular Rhythm: regular Heart sounds: normal: S1, S2 - Gastrointestinal General gastrointestinal: normal bowel sounds - Integumentary Integumentary: normal turgor - Neurologic Neurologic: CNII-XII intact - Musculoskeletal Musculoskeletal: gait normal, generalized weakness, strength equal bilaterally - Psychiatric Psychiatric: A&O x's 3, appropriate affect, intact judgment & insight - Labs CBC & Chem 7: 10/15/24 05:45 10/15/24 05:45 Labs: Abnormal Lab Results - Last 24 Hours (Table) 10/15/24 Range/Units 12:32 POC Glucose (mg/dL) 196 H (70-110) mg/dL Microbiology - Last 24 Hours (Table) 10/14/24 14:25 Urine Culture - Final Urine,Voided 10/14/24 12:37 Blood Culture - Preliminary Blood Assessment and Plan Assessment: Multiple bilateral pulmonary nodules with appearance of cannonball, static prostate cancer less likely per hematology oncology, oncology service considering second primary Metastatic prostate cancer with high alkaline phos. Morbid obesity Hypertension hypertensive cardiovascular disease Dyslipidemia Type 2 diabetes mellitus with hyperglycemia Severe back pain due to metastatic disease throughout the spine no pathologic fractures seen with suspicion of dural mets as well Plan: Bronchoscopy and transbronchial biopsy of lung nodules set later on today patient and family explained at length about side effect complication Reviewed chest x-ray Reviewed level of PSA Further recommendations pending plan of care as per clinical response the patient Time with Patient: Greater than 30
[2024-10-16] MEDS ORDERED: LIDOCAINE 1% INJ 10MG/ML (20 ML MDV) ONE (13:14)
[2024-10-16] MEDS ORDERED: PROPOFOL 10 MG/ML 20 ML VIAL IV ONE (13:14)
[2024-10-16] MEDS: LIDOCAINE 2% (PF) 20 MG/ML 2 ML VIAL INHALATION ONE (13:21)
[2024-10-16] MEDS: IV FLUID CONTINUATION 400 ML IV ONE (13:31)
--- NOTE | 2024-10-16 13:52 | P.PCN ---
Date of Procedure: 10/16/24 Preoperative Diagnosis: Bilateral pulmonary nodules cannonball appearance, mediastinal hilar lymphadenopathy, metastatic prostate cancer Postoperative Diagnosis: Same Procedure(s) Performed: #1 bronchoscopy #2 bronchoalveolar lavage right upper lobe 3 transbronchial lung biopsy of right upper lobe nodules Anesthesia: MAC Surgeon: Jim Bernal Estimated Blood Loss (ml): 10 Condition: stable Disposition: floor Indications for Procedure: As above Operative Findings: As below Description of Procedure: Patient sedated by anesthesia, for anesthesia report please review flowsheet. Right nares was narrow that Q-tip cannot be passed, bronchoscope passed through the left nares after anesthetizing with local viscous lidocaine entered into laryngeal area vocal cords were normal in structure and appearance with bilateral symmetrical movement. Tip of the scope was passed beyond the vocal cords into the trachea mild a right Heema and edema of the trachea was noted trachea was somewhat narrowed at the bifurcation. Dara was sharp, right upper lobe right middle lobe and right lower lobe endobronchial inspection was done no endobronchial mass lesion was seen left upper lobe lingula lobe and lower lobe was also inspected besides mild erythema edema no endobronchial mass was seen. Right upper lobe noted to have 4 bronchial segments instead of 3. Tip of the scope was wedge onto the posterior lateral segment of right upper lobe BAL was performed, post BAL area was anesthetized with epi with lidocaine, 5-6 transbronchial passes were made and adequate sample obtained, patient tolerated the procedure well no complication noted, fluoroscopy was utilized to screen the right lung for pneumothorax no pneumothorax was seen, chest x-ray pending, patient tolerated procedure well no complication no noted estimated blood loss about 15 cc
--- NOTE | 2024-10-16 13:52 | FL ---
EXAMINATION TYPE: FL bronchoscopy DATE OF EXAM: 10/16/2024 1:47 PM COMPARISON: Pre Operative Images if available both CT/MRI or plain film CLINICAL INDICATION: Male, 63 years old with history of FEVER; TECHNIQUE: FL bronchoscopy, multiple fluoroscopic images provided for procedure. Total fluoroscopy time: 1min 23 seconds Total submitted images to PACS: 2 DAP: 1.8693 mGym2 Gycm2 uGym2 cGycm2 or equivalent. FINDINGS: ION bronchoscopy images demonstrate bronchoscope terminating in the lung. No immediate complications identified, no pneumothorax identified. IMPRESSION: 1. No evidence for intraoperative complication. 2. Please see the operative/procedural note for further details. [facility], , 10/16/2024 1:50 PM
[2024-10-16] MEDS: IPRATROPIUM-ALBUTEROL 3 ML NEB INHALATION ONE (13:56)
--- NOTE | 2024-10-16 13:57 | XR ---
EXAMINATION TYPE: XR chest 1V portable DATE OF EXAM: 10/16/2024 1:53 PM COMPARISON: Chest radiographs from 10/13/2024 CLINICAL INDICATION: Male, 63 years old with history of POST BRONCH; [facility] TECHNIQUE: XR chest 1V portable Frontal view of the chest. FINDINGS: Lungs/Pleura: There is no evidence of pleural effusion, focal consolidation, or pneumothorax. Pulmonary vascularity: Pulmonary vascular congestion. Heart/mediastinum: Cardiomediastinal silhouette is unremarkable. Musculoskeletal: No acute osseous pathology. Other findings: None Lines/Tubes: IMPRESSION: 1. No evidence for pneumothorax. 2. Mild pulmonary vascular congestion. [facility], , 10/16/2024 1:55 PM
[2024-10-16] MEDS: IV FLUID CONTINUATION 500 ML IV ONE (13:58)
[2024-10-16 14:14] VITALS: RESP 18
[2024-10-16] MEDS: LACTATED RINGERS 1,000 ML IV SCH (14:43)
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
[2024-10-16 15:12] VITALS: BP 113/62; PULSE 96; TEMP 98.5
[2024-10-16] MEDS ORDERED: HYDROcodone/APAP 5-325MG 1 EACH TAB PO PRN (15:14)
--- NOTE | 2024-10-16 15:32 | P.PN ---
Subjective Progress Note Date: 10/16/24 No acute events, pt reporting improvement in pain today. Plan for bronchoscopy today. Counts stable Objective - Vital Signs Vital signs: Vital Signs Temp 99.7 F H 10/16/24 13:02 Pulse 92 10/16/24 13:02 Resp 18 10/16/24 13:02 BP 112/53 10/16/24 13:02 Pulse Ox 95 10/16/24 13:02 FiO2 Intake & Output 10/15/24 10/16/24 10/16/24 18:59 06:59 18:59 Intake Total 3000 Output Total 2200 Balance 3000 -2200 Weight 120.202 kg Intake: Intake, IV Titration 1200 Amount Sodium Chloride 0.9% 1, 1150 000 ml @ 100 mls/hr IV . Q10H LAURA Rx#:[id number] cefTRIAXone 2 gm In 50 Sodium Chloride 0.9% 50 ml @ 100 mls/hr IVPB Q24HR LAURA Rx#:[id number] Oral 1800 Output: Urine 2200 Other: Voiding Method Indwelling Catheter Indwelling Catheter Indwelling Catheter - Constitutional General appearance: Present: average body habitus, no acute distress - EENT Eyes: Present: anicteric sclerae, EOMI ENT: Present: hearing grossly normal - Respiratory Details: breathing is even and unlabored - Gastrointestinal General gastrointestinal: Present: soft. Absent: tenderness - Integumentary Integumentary: Absent: cyanotic, jaundiced - Musculoskeletal Musculoskeletal: Present: strength equal bilaterally - Psychiatric Psychiatric: Present: A&O x's 3 - Labs CBC & Chem 7: 10/15/24 05:45 10/15/24 05:45 Labs: Microbiology - Last 24 Hours (Table) 10/14/24 14:25 Urine Culture - Final Urine,Voided 10/14/24 12:37 Blood Culture - Preliminary Blood - Imaging and Cardiology MRI T/L spine reviewed Assessment and Plan (1) Back pain Current Visit: Yes Status: Acute Priority: High Code(s): M54.9 - DORSALGIA, UNSPECIFIED SNOMED Code(s): 743705544 (2) Fever of unknown origin Current Visit: Yes Status: Acute Priority: High Code(s): R50.9 - FEVER, UNSPECIFIED SNOMED Code(s): 7456281 (3) Metastatic cancer to lung Current Visit: Yes Status: Acute Priority: High Code(s): C78.00 - SECONDARY MALIGNANT NEOPLASM OF UNSPECIFIED LUNG SNOMED Code(s): 07334715 (4) Metastatic cancer to spine Current Visit: Yes Status: Acute Priority: High Code(s): C79.51 - SECONDARY MALIGNANT NEOPLASM OF BONE SNOMED Code(s): 78335150 (5) Prostate carcinoma Current Visit: Yes Status: Acute Priority: High Code(s): C61 - MALIGNANT NEOPLASM OF PROSTATE SNOMED Code(s): 508925923 Plan: Metastatic prostate carcinoma, bone mets, also lung and mediastinal LAD -Patient had a biopsy with Dr. Pino 09/15/2024. Poorly differentiated adenocarcinoma involving 85 to 90% of the tissue submitted. Perineural invasion is present, [place] score 5+5 = 10 -Back pain, bone metastases on imaging. MRI of the T and L-spine reporting metastatic disease throughout the spine, no evidence for pathological fracture. No significant spinal canal or neuroforaminal stenosis. Dural thickening at the level of T11 posteriorly measuring 29 x 7 mm, as well as near the anterior thecal sac at L5-S1 soft tissue mass measuring 7 x 9 cm, suspicious for dural metastases. Right lower paratracheal conglomerate lymph nodes seen on CT measuring 54 x 37 mm. Scattered pulmonary nodules also seen. -Current pain medication regimen is adequate. Patient is mostly using anti- inflammatories. -Medications for prevention of narcotic induced constipation continue -Dose of zometa given for bone mets. Calcium level down, oral calcium vitamin D supplement ordered -Bronchoscopy scheduled today with Dr. Bernal -Rad onc has evaluated pt, no plan for palliative RT at this time Fever of unknown origin -Pancultures negative thus far -Empiric antibiotics ordered -Afebrile last 24 hours -Infectious disease following Discussed with patient and his plan of care. #1 Currently pending lung biopsy. While bone metastasis is a rather common finding with metastatic prostate cancer, the pulmonary nodules are a bit unusual. It is better to have a biopsy and know the origin of these lesions. They verbalized understanding. #2 recommendations for treatment of prostate cancer per Urology. Starting an ARB, continuing Zometa or rank ligand inhibitor. #3 Rad Onc has been consulted to assess patient for possible palliative treatment for painful bone metastases. #4 It is recommended that tissue specimen to be sent for next generation sequencing as well as PD-L1 testing. ARB 7 mutations, if found, are significant in that angiotensin blockers did not work as well in prostate cancers that have this mutation, patient may require chemo if that is found. All of this was reviewed with the patient and his . They verbalized understanding all of the recommendations. Will CC Dr. Pino a note as well.
--- NOTE | 2024-10-16 19:21 | P.DS ---
Providers Date of admission: 10/12/24 16:56 Expected date of discharge: 10/16/24 Attending physician: Kosta Damon Consults: 10/12/24 16:56 Consult Physician Urgent Consulting Provider: Jelani Mendez Consult Reason/Comments: Metastatic disease to the lung and bone Do you want consulting provider notified?: Yes Consult Physician Urgent Consulting Provider: Philip Concepcion Consult Reason/Comments: Urinary retention, prostate cancer Do you want consulting provider notified?: Yes 10/12/24 19:00 Consult Physician Routine Consulting Provider: Reinaldo Garibay Consult Reason/Comments: fever in cancer patient Do you want consulting provider notified?: Yes 10/12/24 19:02 Consult Physician Routine Consulting Provider: Jim Bernal Consult Reason/Comments: pulmonary nodules Do you want consulting provider notified?: Yes 10/15/24 11:31 Consult Physician Routine Consulting Provider: Jules Grant Consult Reason/Comments: painful bone metastasis Do you want consulting provider notified?: Already Contacted Primary care physician: [facility] [facility] Hospital Course: Hospital course: I am covering for Dr. Kosta Damon, who called me this evening not feeling well. October 13: Patient in the process of getting staging for his prostate cancer. TURP was done by Dr. Adan on September 15. Pathology showing poorly differentiated prostate adenocarcinoma. [place] score of 10. He was having significantly low back pain. That times in the last few weeks he is not able to urinate. Patient now has a Groves catheter. Patient had a bowel movement day before. Appetite is fair. Up to the bathroom. Pulmonary has ordered interventional radiology consult for CT-guided biopsy of nodules in the chest. October 14: Up in a recliner. and daughter at the bedside. Groves catheter is got some bloody urine. Patient is pending MRI and also CT-guided lung biopsy. Pain is somewhat better controlled. Tolerating diet. Per Dr. Adan patient need complete hormone suppression. This will be started outpatient. October 15: Up in recliner. MRI of the spine showing multiple metastasis. Hematuria in the Groves catheter is improved. Pending CT scan of the lung biopsy. Tolerating a diet. Current pain medications are working well. Patient seen by radiation oncology. Hold off palliative treatment for bone per them for now. Patient spiked fever yesterday evening. Urine culture from the negative. Patient been on IV ceftriaxone. Likely cause UTI. On IV ceftriaxone. October 16: Up in a chair. Family is at bedside. Patient underwent bronchoscopy with biopsy by Dr. Bernal. Results discussed. Postprocedure x-ray was reviewed by him. Cleared for discharge. Discussed with ID Dr. Garibay. Patient to take Ceftin for 7 more days. Patient will follow-up with urologist dr. adan. Also seen by radiation oncologist. Not for any acute intervention currently. They will follow through. For pain patient will be discharged on meloxicam NSAIDs for his bone pain and [place] as needed. Also to take Tylenol. And a heating pad. Discussion and discharge planning more than 35 minutes On examination: VITAL SIGNS: 98.5, 96, 18, 113 x 62, 96% room air GENERAL APPEARANCE: BMI 37.0, up in recliner, comfortable HEENT: Normal external appearance of nose and ear. Oral cavity normal EYES: Pupils equal. Conjunctiva normal. NECK: JVD not raised. Mass not palpable. RESPIRATORY: Respiratory effort increased, decreased breath sound CARDIOVASCULAR: First and second sounds normal. No edema. ABDOMEN: Soft. Distended liver and spleen not palpable. No tenderness. No mass palpable. Groves catheter-no blood in urine PSYCHIATRY: Alert and oriented x3. Mood and affect with anxious INVESTIGATIONS, reviewed in the clinical context: October 15: White count 3.5 hemoglobin 8.2 platelets 128 potassium 4.5 creatinine 0.96 calcium 6.4 Thoracolumbar MRI: Metastatic disease throughout the spine. No pathologic fracture. No significant spinal canal or neural foraminal stenosis. Dural thickening at the level of T11. October 13: White count 4.3 hemoglobin 8.6 platelets 446 sodium 130 potassium 5 creatinine 1.4 AST 37 ALT 13 alkaline phosphatase 890 Chest x-ray: Trachea some shifting to the right. Scattered opacities. Assessment plan: -Metastatic adenocarcinoma of the prostate to the bones. [place] score of 10 MRI of thoracolumbar spine positive for metastatic disease throughout the spine including the dura. Oncology to follow outpatient -Acute UTI secondary to Groves catheter causing sepsis IV ceftriaxone. Discharged on Ceftin 500 twice daily for 7 days -Pulmonary nodules possibly metastatic disease. Not typically prostate does not go to the lungs. Bronchoscopy with biopsy done today by Dr. Rosendo Bernal from pulmonary. Will follow o utpatient - bladder outflow obstruction. Recent TURP. Has a Groves catheter. Seen by Dr. Adan outpatient Seen by Dr. Adan. For outpatient hormone suppression treatment to be started. Continue Groves for now. -Hematuria. Groves catheter in place.: Resolved Follow H&H -Acute low back pain from metastatic disease. Bone pain Seen by radiation oncologist. Hold of radiation treatment for now. Meloxicam. [place] as needed. Tylenol. Heating pad. -Hypocalcemia Os-Joe 500 vit D twice daily -Essential hypertension Amlodipine 5 mg a day. Cozaar 100 mg a day. -Hyperlipidemia Lipitor 10 mg a day -Diabetes mellitus type 2, on oral hypoglycemic Glucophage. Ozempic. -Obesity BMI 37 Disposition: Home Plan - Discharge Summary Discharge Rx Participant: No New Discharge Prescriptions: New cefuroxime axetiL [Ceftin] 500 mg PO BID #14 tab Sennosides-Docusate Sodium [Senokot-S] 2 each PO BID #60 tab Acetaminophen Tab [Tylenol] 500 mg PO Q6HR PRN tab PRN Reason: Fever And/ Or Pain Calcium Carb-Vit D 500Mg-5Mcg [Oscal 500+D 5 Mcg (200 Iu)] 1 each PO BID #60 tab HYDROcodone/APAP 5-325MG [[place] 5-325] 1 tab PO Q6HR PRN #30 tab PRN Reason: Pain Continue Losartan/Hydrochlorothiazide [Losartan-Hctz 100-12.5 mg Tab] 1 tab PO DAILY metFORMIN HCL [Glucophage] 500 mg PO BID amLODIPine [Norvasc] 5 mg PO DAILY Meloxicam [Mobic] 15 mg PO DAILY Cyclobenzaprine [Flexeril] 10 mg PO BID PRN PRN Reason: Pain [place]-3/Dha/Epa/Fish Oil [Fish Oil 1,000 mg Softgel] 1 cap PO DAILY Multivit-Minerals/FA/Lycopene [One-A-Day Men's 50 Plus Tablet] 1 tab PO DAILY Tamsulosin [Flomax] 0.4 mg PO BID Atorvastatin [Lipitor] 10 mg PO DAILY Semaglutide [Ozempic] 0.25 mg SQ NEGRETE Discontinued cloNIDine HCL [Catapres] 0.1 mg PO DAILY Sulfamethox-Tmp 800-160Mg [Bactrim DS 800-160 mg] 1 tab PO Q12HR Discharge Medication List Losartan/Hydrochlorothiazide [Losartan-Hctz 100-12.5 mg Tab] 1 tab PO DAILY 11/03/15 [History] Atorvastatin [Lipitor] 10 mg PO DAILY 10/02/24 [History] Tamsulosin [Flomax] 0.4 mg PO BID 10/02/24 [History] amLODIPine [Norvasc] 5 mg PO DAILY 10/02/24 [History] metFORMIN HCL [Glucophage] 500 mg PO BID 10/02/24 [History] Cyclobenzaprine [Flexeril] 10 mg PO BID PRN 10/12/24 [History] Meloxicam [Mobic] 15 mg PO DAILY 10/12/24 [History] Multivit-Minerals/FA/Lycopene [One-A-Day Men's 50 Plus Tablet] 1 tab PO DAILY 10/12/24 [History] [place]-3/Dha/Epa/Fish Oil [Fish Oil 1,000 mg Softgel] 1 cap PO DAILY 10/12/24 [History] Semaglutide [Ozempic] 0.25 mg SQ NEGRETE 10/12/24 [History] Acetaminophen Tab [Tylenol] 500 mg PO Q6HR PRN tab 10/16/24 [Rx] Calcium Carb-Vit D 500Mg-5Mcg [Oscal 500+D 5 Mcg (200 Iu)] 1 each PO BID #60 tab 10/16/24 [Rx] HYDROcodone/APAP 5-325MG [[place] 5-325] 1 tab PO Q6HR PRN #30 tab 10/16/24 [Rx] Sennosides-Docusate Sodium [Senokot-S] 2 each PO BID #60 tab 10/16/24 [Rx] cefuroxime axetiL [Ceftin] 500 mg PO BID #14 tab 10/16/24 [Rx] Follow up Appointment(s)/Referral(s): Sophie Allison MD [Primary Care Provider] - 1-2 days (please call the office to schedule a follow up appointment) Jim Bernal [STAFF PHYSICIAN] - 10/23/24 10:45 am (Lung Doctor) Daryl Adan MD [STAFF PHYSICIAN] - 10/22/24 8:20 am (Urology) Patient Instructions/Handouts: Cefuroxime (By mouth), Hydrocodone/Acetaminophen (By mouth), Calcium/Vitamin D Supplement (By mouth), Senna (By mouth), Groves Catheter Placement and Care (DC), Urinary Leg Bag (GEN) Activity/Diet/Wound Care/Special Instructions: Oncology says they will follow-up with you in their office if Dr. Adan determines that oncology is needed. Discharge Disposition: HOME SELF-CARE
--- NOTE | 2024-10-16 23:18 | P.PN ---
Subjective Progress Note Date: 10/16/24 Principal diagnosis: Reason for follow-up is fever/UTI Patient is a 63-year-old male with a past medical history significant for hypertension and gout prostate cancer presenting to the hospital for evaluation of lower abdominal discomfort pressure and did have difficulty urination with some burning, did have a fever concerning for urinary tract infection. On today's evaluation that is 10/16/2024, the patient did have improvement his fever pattern and is afebrile today, the patient is on room air and breathing comfortably, the Pt denies having any chest pain or any worsening cough, the patient denies having any abdominal pain no vomiting or any diarrhea has been reported by the nursing staff. Patient did not have a lab draw and culture have been negative Objective - Vital Signs Vital signs: Vital Signs Temp 99.7 F H 10/16/24 13:02 Pulse 92 10/16/24 13:02 Resp 18 10/16/24 13:02 BP 112/53 10/16/24 13:02 Pulse Ox 95 10/16/24 13:02 FiO2 Intake & Output 10/15/24 10/16/24 10/16/24 18:59 06:59 18:59 Intake Total 3000 Output Total 2200 Balance 3000 -2200 Weight 120.202 kg Intake: Intake, IV Titration 1200 Amount Sodium Chloride 0.9% 1, 1150 000 ml @ 100 mls/hr IV . Q10H [facility] Rx#:[id number] cefTRIAXone 2 gm In 50 Sodium Chloride 0.9% 50 ml @ 100 mls/hr IVPB Q24HR [facility]UR[facility] Rx#:[id number] Oral 1800 Output: Urine 2200 Other: Voiding Method Indwelling Catheter Indwelling Catheter Indwelling Catheter - Exam GENERAL DESCRIPTION: An elderly male up in the chair in no distress RESPIRATORY SYSTEM: Unlabored breathing , decreased breath sounds at bases HEART: S1 S2 regular rate and rhythm , ABDOMEN: Soft , no tenderness EXTREMITIES: No edema feet - Labs CBC & Chem 7: 10/15/24 05:45 10/15/24 05:45 Labs: Microbiology - Last 24 Hours (Table) 10/14/24 14:25 Urine Culture - Final Urine,Voided 10/14/24 12:37 Blood Culture - Preliminary Blood Assessment and Plan (1) Urinary tract infection Status: Acute Code(s): N39.0 - URINARY TRACT INFECTION, SITE NOT SPECIFIED SNOMED Code(s): 61097888 (2) Fever Status: Acute Code(s): R50.9 - FEVER, UNSPECIFIED SNOMED Code(s): 499658133 Plan: 1patient with a low-grade fever in this patient presented to hospital with lower abdominal discomfort difficulty urination and some burning positive UA likely etiology will be the urinary source and this patient has been recently diagnosed with the metastatic prostate cancer and did have a recent TURP proced ure 2 patient did have improvement in the fever pattern initial urine was reported negative repeat blood and urine culture negative keeping in mind improvement in the fever with Rocephin we will consider Ceftin on discharge when cleared by other acquisition consultant Dictation was produced using [employer] dictation software. please excuse any grammatical, word or spelling errors. Time with Patient: Less than 30
[2024-10-18] MEDS ORDERED: MELOXICAM 7.5 MG TAB PO SCH (09:00)
[2024-10-18] MEDS ORDERED: NON FORMULARY DRUG (Semaglutide [Ozempic] 0.25 MG/0.368 ML Pen.Injctr) SQ SCH (09:00)
--- NOTE | 2024-10-19 08:41 | OP ---
OPERATIVE REPORT DATE OF SERVICE : 09/14/2024 PROCEDURE PERFORMED: Bipolar transurethral resection of the prostate. INDICATIONS: Joshua Mayfield is 63. He has had recurrent urine infections and inability to urinate. The patient was evaluated and found to have enlarged and obstructing prostate. He had been evaluated for this problem by Urologist in the past. He was placed on medical management that did not help him. He came to see me. We identified retention. He comes for TURP. DESCRIPTION OF PROCEDURE: The patient was brought to the operative suite, given a general anesthetic. Placed in lithotomy position with sterile prep and drape. He has been given preoperative antibiotics. Under direct vision, a 25-K[place] sheath and a direct vision obturator introduced into the DICTATION ENDS HERE MMODL / IJN: [id number] /
== END 2024-10-16 16:55 | disposition home or self-care (01) | DRG 543 ==
LOC: EC 13:39 → 5NMEDONC 16:56
PROVIDERS: ADMIT Family Medicine; ATTEND Family Medicine
PROC: 0B9C8ZX Drainage of Right Upper Lung Lobe, Via Natural or Artificial Opening Endoscopic, Diagnostic (ICD-10-PCS; principal; 2024-10-16 13:00)
PROC: 0BDC8ZX Extraction of Right Upper Lung Lobe, Via Natural or Artificial Opening Endoscopic, Diagnostic (ICD-10-PCS; 2024-10-16 13:00)
DX: C79.51 Secondary malignant neoplasm of bone (principal); C78.00 Secondary malignant neoplasm of unspecified lung; N39.0 Urinary tract infection, site not specified; J90 Pleural effusion, not elsewhere classified; C61 Malignant neoplasm of prostate; E11.65 Type 2 diabetes mellitus with hyperglycemia; E66.01 Morbid (severe) obesity due to excess calories; E78.5 Hyperlipidemia, unspecified; Z51.5 Encounter for palliative care; I10 Essential (primary) hypertension; K59.00 Constipation, unspecified; N32.0 Bladder-neck obstruction; G89.3 Neoplasm related pain (acute) (chronic); Z79.1 Long term (current) use of non-steroidal anti-inflammatories (NSAID); Z79.84 Long term (current) use of oral hypoglycemic drugs; Z79.899 Other long term (current) drug therapy; Z85.46 Personal history of malignant neoplasm of prostate; Z90.79 Acquired absence of other genital organ(s); R31.9 Hematuria, unspecified; E83.51 Hypocalcemia; R50.9 Fever, unspecified; R33.8 Other retention of urine; N40.1 Benign prostatic hyperplasia with lower urinary tract symptoms; E66.9 Obesity, unspecified; Z68.37 Body mass index [BMI] 37.0-37.9, adult
CPT/HCPCS: 31624; 31628; 36415; 51702; 51798; 71045; 71046; 71275; 72157; 72158; 80048; 80053; 81001; 84132; 84153; 85025; 85379; 87040; 87070; 87086; 87102; 87116; 87205; 87206; 96361; 96374; 96375; 96376; 99284

== ENCOUNTER → 2024-10-12 | Outpatient (CLI) | payer MEDICARE, BC ==
--- NOTE | 2024-10-12 07:39 | XR ---
EXAMINATION TYPE: XR chest 2V DATE OF EXAM: 10/12/2024 7:26 AM COMPARISON: Chest radiographs from V and prior plain film 02/17 CLINICAL INDICATION: Male, 63 years old with history of C61 MALIGNANT NEOPLASM OF PROSTATE; [facility] TECHNIQUE: XR chest 2V Frontal and lateral views of the chest. FINDINGS: Lungs/Pleura: The demonstration of bilateral pulmonary nodules. There is no evidence of pleural effus ion, focal consolidation, or pneumothorax. Pulmonary vascularity: Unremarkable. Heart/mediastinum: Cardiomediastinal silhouette is unremarkable. Musculoskeletal: No acute osseous pathology. There is fixation hardware in the lower cervical spine. IMPRESSION: No acute cardiopulmonary disease/process. Bilateral pulmonary nodes compatible with metastatic diseas e. [facility], , 10/12/2024 7:36 AM
[2024-10-12 08:09] LABS: African American GFR (CKD) 87 (>60 ml/min/1.73 sqM); Blood Urea Nitrogen 13 mg/dL (9-20); Non-African American GFR(CKD) 75 (>60 ml/min/1.73 sqM)
--- NOTE | 2024-10-12 10:16 | CT ---
EXAMINATION TYPE: CT chest w con DATE OF EXAM: 10/12/2024 9:44 AM COMPARISON: Chest radiograph from same day. Abdomen pelvis from 325 CLINICAL INDICATION: Male, 63 years old with history of C61 MALIGNANT NEOPLASM OF PROSTATE; [facility], Faye gnant neoplasm of prostate. TECHNIQUE: Multiple axial images were obtained through the chest. Sagittal and coronal reformats were created for review. MIP was performed on a separate workstation. Contrast used:100ml mL of Isovue 300 with IV Contrast (None if empty) Oral contrast used: (None if empty) CT DLP: 569.4 mGycm, Automated exposure control for dose reduction was used. FINDINGS: LUNGS/ PLEURA: Bilateral pulmonary nodules compatible with metastatic disease.. Examples include righ t upper lung measuring 15 mm series 3 image 16 in the right lower lung measuring 20 mm series 3 image 30. No focal consolidation, pneumothorax or pleural effusion. AIRWAY: Patent and unremarkable. HEART: Size within normal limits. MEDIASTINUM: No gross evidence of adenopathy. VASCULATURE: No aortic aneurysm. 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 Remote appeari ng bilateral rib injuries. SOFT TISSUES/LYMPH NODES: Scattered enlarged lymph nodes with mediastinal examples include: enlarged right low paratracheal lymph node measuring up to 24 mm in short axis. Enlarged AP window lymph node measuring up to 15 mm in short axis. Enlarged subcarinal lymph node measuring up to the 31 mme. Right pulmonary hilum lymph node measuring up to 29 mm. LOWER NECK: No significant findings. UPPER ABDOMEN: No significant findings. IMPRESSION: 1. Scattered pulmonary nodules (greater than 20) and mediastinal lymphadenopathy compatible with met astatic disease. Correlate for history of malignancy. 2. Remote bilateral remote injuries. [facility], , 10/12/2024 10:14 AM
--- NOTE | 2024-10-12 14:07 | NM ---
EXAMINATION TYPE: NM bone scan whole body DATE OF EXAM: 10/12/2024 1:37 PM CLINICAL INDICATION:Male, 63 years old with history of C61 MALIGNANT NEOPLASM OF PROSTATE; COMPARISON: 10/12/2024 TECHNIQUE: Intravenous administration 25.3 mCi Tc 99m MDP followed by multiple scintigraphic images o f the appendicular and axial skeleton. Additionally, small field of view planar anterior and posterio r images of the lumbosacral spine and pelvis. Lastly, coronal, transverse, and sagittal SPECT images of the lumbosacral spine and pelvis were generated for review.Lastly, small [id number] anterior, p osterior and lateral views of the chest were submitted for review. Images acquired 5.25 hours post injection. FINDINGS: Abnormal uptake seen throughout the osseous structures involving nearly every osseous structure. Exam ples include the right clavicle, throughout the spine, bilateral ribs, pelvis left greater than right , right mid femur diaphysis possibly left mid femur diaphysis. These are very inconspicuous on CT. There is increased uptake within the bilateral shoulder, sternoclavicular, and sacroiliac joints con sistent with degenerative changes. No other photopenic areas or areas of increased activity are ident ified. Physiologic radiotracer activity is demonstrated in the kidneys and bladder. IMPRESSION: Diffuse metastatic disease, findings on prior CT May represent subtle lucencies throughout the spine which are inconspicuous. [facility], , 10/12/2024 2:05 PM
== END | disposition home or self-care (01) ==
LOC: RADNMMAIN 07:05
PROVIDERS: ATTEND Urology
DX: C61 Malignant neoplasm of prostate (principal); R91.8 Other nonspecific abnormal finding of lung field; R59.0 Localized enlarged lymph nodes
CPT/HCPCS: 82565; 84520; 71046; 71260; 78306; 36415; A9503; Q9967

== ENCOUNTER 2025-02-07 09:04 | Inpatient (IN) | payer MEDICARE, BC ==
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
[2025-02-07] MEDS: THIAMINE 100 MG/ML 2 ML VIAL IM STA (09:57)
[2025-02-07] MEDS: ONDANSETRON 4 MG/2 ML VIAL IVP STA (09:58)
[2025-02-07] MEDS: FAMOTIDINE 20 MG/2 ML VIAL IV STA (09:58)
[2025-02-07] MEDS: SODIUM CHLORIDE 0.9% 1,000 ML IV STA ×2 (09:59→14:48)
[2025-02-07 10:10] LABS: ALT 51 U/L (4-49); AST 79 U/L (17-59); African American GFR (CKD) >90 (>60 ml/min/1.73 sqM); Albumin 3.6 g/dL (3.5-5.0); Alkaline Phosphatase 166 U/L (38-126); Anion Gap 12 mmol/L; Blood Urea Nitrogen 16 mg/dL (9-20); Calcium 7.8 mg/dL (8.4-10.2); Carbon Dioxide 24 mmol/L (22-30); Chloride 105 mmol/L (98-107); Glucose 151 mg/dL (74-99); Lipase 164 U/L (23-300); Magnesium 1.7 mg/dL (1.6-2.3); Non-African American GFR(CKD) >90 (>60 ml/min/1.73 sqM); Potassium 3.5 mmol/L (3.5-5.1); Sodium 141 mmol/L (137-145); Total Bilirubin 0.7 mg/dL (0.2-1.3); Total Protein 6.1 g/dL (6.3-8.2)
[2025-02-07 10:39] LABS: HCT 40.9 % (39.6-50.0); HGB 14.4 g/dL (13.0-17.0); Lymphocytes % (A) 30.1 %; MCH 28.3 pg (27.0-32.0); MCHC 35.2 g/dL (32.0-37.0); MCV 80.5 fL (80.0-97.0); Mean Platelet Volume 9.1 fL (9.5-12.2); Neutrophils % (A) 58.5 %; RBC 5.08 10*6/uL (4.40-5.60); RDW 16.5 % (11.5-14.5); WBC 4.12 10*3/uL (4.50-10.00)
[2025-02-07 10:40] LABS: Basophils # (A) 0.01 10*3/uL (0.00-0.10); Basophils % (A) 0.2 %; Eosinophils # (A) 0.04 10*3/uL (0.04-0.35); Lymphocytes # (A) 1.24 10*3/uL (0.90-5.00); Monocytes # (A) 0.41 10*3/uL (0.20-1.00); Neutrophils # (A) 2.41 10*3/uL (1.80-7.70)
[2025-02-07 10:54] LABS: Alcohol 322 mg/dL
[2025-02-07] MEDS ORDERED: NALOXONE 0.4 MG/ML 1 ML VIAL IV PRN (11:34)
[2025-02-07] MEDS ORDERED: LORazepam 1 MG TAB PO PRN (11:36)
[2025-02-07] MEDS ORDERED: LORazepam 0.5 MG TAB PO PRN (11:36)
[2025-02-07] MEDS: LORazepam 1 MG/0.5 ML VIAL IV STA (11:56)
[2025-02-07] MEDS: LORazepam 1 MG TAB PO PRN ×2 (13:24→23:21)
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
[2025-02-07 13:45] LABS: Platelet Count 81 10*3/uL (140-440)
[2025-02-07] MEDS ORDERED: PROCHLORPERAZINE INJ 10 MG/2 ML VIAL IVP PRN (15:23)
[2025-02-07] MEDS: PHENobarbital SODIUM 130 MG/ML 1 ML VIAL IM STA (15:39)
[2025-02-07] MEDS: PHENobarbital SODIUM 130 MG/ML 1 ML VIAL IV ONE (17:09)
[2025-02-07] MEDS: DEXMEDETOMIDINE/0.9% NACL(PMX) 400 MCG in EMPTY BAG 1 BAG IV SCH (17:25)
[2025-02-07 17:43] LABS: Glucose,Whole Blood 142 mg/dL (70-110)
[2025-02-07] MEDS: PANTOPRAZOLE 40 MG TABLET PO SCH (18:35)
[2025-02-07] MEDS ORDERED: Potassium Replacement Protocol 1 EACH MISC MISCELLANE PRN (19:18)
[2025-02-07] MEDS ORDERED: Magnesium Replacement Protocol 1 EACH MISC MISCELLANE PRN (19:18)
[2025-02-07] MEDS: POTASSIUM BICARBONATE/CIT AC 20 MEQ TABLET.EFF NG-TUBE SCH (20:34)
[2025-02-07] MEDS: FAMOTIDINE 20 MG TAB PO SCH (20:34)
[2025-02-07] MEDS: MAGNESIUM SULFATE-D5W PMX 1 GM in DEXTROSE/WATER 1 100ML.BAG IVPB ONE (20:34)
[2025-02-07] MEDS: ZINC OXIDE PASTE (Z-GUARD) 1 APPLIC TOPICAL SCH (21:13)
[2025-02-07 21:31] LABS: Amphetamine Screen,Urine Not Detected (NotDetected); Barbiturate Screen,Urine Detected (NotDetected); Benzodiazepines Screen,Urine Detected (NotDetected); Cocaine Screen,Urine Not Detected (NotDetected); Methadone Screen, Urine Not Detected (NotDetected); Opiate Screen,Urine Not Detected (NotDetected); Oxycodone Screen, Urine Not Detected (NotDetected); Phencyclidine Screen,Urine Not Detected (NotDetected); Tricyclic Antidepressant,Urine Not Detected (NotDetected); Urn Cannabinoid Scrn Detected (NotDetected)
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
[2025-02-08] MEDS: PHENobarbitaL 16.2 MG TAB PO ONE ×2 (03:32→07:09)
[2025-02-08 06:18] LABS: Basophils # (A) 0.01 10*3/uL (0.00-0.10); Basophils % (A) 0.5 %; Eosinophils # (A) 0.04 10*3/uL (0.04-0.35); Eosinophils % (A) 1.9 %; HCT 30.6 % (39.6-50.0); Lymphocytes # (A) 0.72 10*3/uL (0.90-5.00); Lymphocytes % (A) 33.6 %; MCH 29.2 pg (27.0-32.0); MCHC 36.3 g/dL (32.0-37.0); MCV 80.5 fL (80.0-97.0); Mean Platelet Volume 9.5 fL (9.5-12.2); Monocytes # (A) 0.29 10*3/uL (0.20-1.00); Monocytes % (A) 13.6 %; Neutrophils # (A) 1.08 10*3/uL (1.80-7.70); Neutrophils % (A) 50.4 %; RDW 16.1 % (11.5-14.5); WBC 2.14 10*3/uL (4.50-10.00)
[2025-02-08 06:29] LABS: HGB 11.1 g/dL (13.0-17.0); Platelet Count 48 10*3/uL (140-440)
[2025-02-08 06:37] LABS: ALT 45 U/L (4-49); AST 74 U/L (17-59); African American GFR (CKD) >90 (>60 ml/min/1.73 sqM); Albumin 2.8 g/dL (3.5-5.0); Alkaline Phosphatase 147 U/L (38-126); Anion Gap 8 mmol/L; Blood Urea Nitrogen 15 mg/dL (9-20); Calcium 8.1 mg/dL (8.4-10.2); Carbon Dioxide 24 mmol/L (22-30); Chloride 99 mmol/L (98-107); Glucose 124 mg/dL (74-99); Magnesium 1.6 mg/dL (1.6-2.3); Non-African American GFR(CKD) >90 (>60 ml/min/1.73 sqM); Potassium 3.7 mmol/L (3.5-5.1); Sodium 131 mmol/L (137-145); Total Bilirubin 1.7 mg/dL (0.2-1.3); Total Protein 5.1 g/dL (6.3-8.2)
[2025-02-08] MEDS: THIAMINE 100 MG TAB PO SCH (09:28)
[2025-02-08] MEDS: FOLIC ACID 1 MG TAB PO SCH (09:28)
[2025-02-08] MEDS: ENOXAPARIN 40 MG/0.4 ML SYRINGE SQ SCH (09:28)
[2025-02-08] MEDS ORDERED: DEXTROSE 50% SYRINGE 50 ML IVP PRN ×2 (12:27)
--- NOTE | 2025-02-08 12:30 | P.PN ---
Subjective Progress Note Date: 02/08/25 Subjective: Patient seen and examined at bedside. No acute events overnight. Still tremulous. Sitter at bedside. Off of Precedex drip. Pertinent positives and negatives as discussed above, a complete review of systems was performed and all other systems are negative. Vitals Signs Reviewed. General: Nontoxic, no distress, appears at stated age Derm: Warm, dry Head: Atraumatic, normocephalic, symmetric Eyes: EOMI, no lid lag, anicteric sclera Mouth: No lip lesion, mucus membranes moist Cardiovascular: S1S2 reg, no murmur Lungs: CTA bilateral, no rhonchi, no rales, no accessory muscle use Abdominal: Soft, nontender to palpation, no guarding, no appreciable organomegaly Ext: No gross muscle atrophy, no edema, no contractures Neuro: CN II-XI grossly intact, no focal neuro deficits, tremulous Psych: Alert, oriented, appropriate affect Data Reviewed Today: Pertinent Labs: WBC 2.14, hemoglobin 11.1, platelet 48, sodium 131, creatinine 0.68, total bili 1.7, AST 74, ALT 45, ALP 147 Imaging: No new imaging Assessment and Plan: Active: Acute alcohol withdrawal Alcohol dependence Acute alcohol intoxication - Continue sitter at bedside - On CIWA, IV and oral Ativan as needed, thiamine 100 mg daily, folic acid 1 mg daily - Continue phenobarbital oral 32.4+64.8 p.o. 3 times daily Transaminitis Pancytopenia - Likely secondary to above Type 2 diabetes - Sliding scale insulin, monitor for hypoglycemia Chronic: History of prostate cancer with diffuse metastasis, including bone and lungs History of TURP Hypertension DVT ppx: Lovenox Code status: Full code Anticipated discharge place: Pending clinical course Anticipated discharge time: Pending clinical course Objective - Vital Signs Vital signs: Vital Signs Temp 98.1 F 02/08/25 08:00 Pulse 78 02/08/25 10:00 Resp 22 02/08/25 10:00 BP 152/81 02/08/25 10:00 Pulse Ox 96 02/08/25 10:00 FiO2 Intake & Output 02/07/25 02/08/25 02/08/25 18:59 06:59 18:59 Intake Total 6.842 964.791 88.467 Output Total 950 0 Balance 6.842 14.791 88.467 Weight 90.718 kg 94.5 kg Intake: IV 735 80 Sodium Chloride 0.9% 1, 735 80 000 ml @ 75 mls/hr IV . [id number] STA Rx#:[id number] Intake, IV Titration 6.842 229.791 8.467 Amount Dexmedetomidine/0.9% NaCl 6.842 154.791 8.467 (Pmx) 400 mcg In Empty Bag 1 bag @ 0.2 MCG/KG/HR 4.536 mls/hr IV .Q22H3M [facility]URA Rx#:[id number] Sodium Chloride 0.9% 1, 75 000 ml @ 75 mls/hr IV . [id number] STA Rx#:[id number] Output: Urine 950 0 Other: Voiding Method Urinal Urinal Diaper Diaper # Voids 0 # Bowel Movements 0 0 - Labs CBC & Chem 7: 02/08/25 05:26 02/08/25 05:26 Labs: Abnormal Lab Results - Last 24 Hours (Table) 02/07/25 02/07/25 02/07/25 Range/Units 09:48 17:41 21:00 WBC (4.50-10.00) 10*3/uL RBC (4.40-5.60) 10*6/uL Hgb (13.0-17.0) g/dL Hct (39.6-50.0) % Plt Count 81 L (140-440) 10*3/uL Neutrophils # (1.80-7.70) 10*3/uL Lymphocytes # (0.90-5.00) 10*3/uL Sodium (137-145) mmol/L Glucose (74-99) mg/dL POC Glucose (mg/dL) 142 H (70-110) mg/dL Calcium (8.4-10.2) mg/dL Total Bilirubin (0.2-1.3) mg/dL AST (17-59) U/L Alkaline Phosphatase (38-126) U/L Total Protein (6.3-8.2) g/dL Albumin (3.5-5.0) g/dL Ur Barbiturates Screen Detected H (NotDetected) U Benzodiazepines Scrn Detected H (NotDetected) U Marijuana (THC) Screen Detected H (NotDetected) 02/08/25 02/08/25 Range/Units 05:26 05:26 WBC 2.14 L (4.50-10.00) 10*3/uL RBC 3.80 L (4.40-5.60) 10*6/uL Hgb 11.1 L D (13.0-17.0) g/dL Hct 30.6 L (39.6-50.0) % Plt Count 48 L (140-440) 10*3/uL Neutrophils # 1.08 L (1.80-7.70) 10*3/uL Lymphocytes # 0.72 L (0.90-5.00) 10*3/uL Sodium 131 L (137-145) mmol/L Glucose 124 H (74-99) mg/dL POC Glucose (mg/dL) (70-110) mg/dL Calcium 8.1 L (8.4-10.2) mg/dL Total Bilirubin 1.7 H (0.2-1.3) mg/dL AST 74 H (17-59) U/L Alkaline Phosphatase 147 H (38-126) U/L Total Protein 5.1 L (6.3-8.2) g/dL Albumin 2.8 L (3.5-5.0) g/dL Ur Barbiturates Screen (NotDetected) U Benzodiazepines Scrn (NotDetected) U Marijuana (THC) Screen (NotDetected)
--- NOTE | 2025-02-08 13:24 | P.CN ---
Psychiatric Consult - . Consult date: 02/08/25 Consult:: 02/08/25 13:19 IDENTIFYING DATA: This patient is a 64-year-old male, employed and living with REASON FOR REFERRAL: Psychiatry was consulted for psychiatric eval HISTORY OF PRESENT ILLNESS: The patient presented to the hospital with alcohol intoxication with a serum alcohol level of 322, LFTs elevated. Patient was ultimately transferred to the ICU and started on Precedex with phenobarbital. Patient seen and evaluated in his room with sitter at bedside. He feels as though he is psychiatrically stable and does not need help with mental illness. His alcohol use was discussed further to which patient states he has been drin dorota heavily for the past 3 years however this occurs in spurts described as binge drinking up to 4-1/2 pints of hard liquor per day. He states his withdrawal symptoms are better now, only reporting weakness due to his cancer medications. 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 He has a history of DUI over 30 years ago and has gone to rehab several times most recent 1 year ago. He is not interested in any rehab at this time, stating that he has learned everything already however he was encouraged to get connected with the sponsor and at least attend AA meetings. He was also not open to starting naltrexone or Campral for maintenance and sobriety, stating that he has enough medications to take with his cancer. At this time patient denies any suicidal or homicidal ideations, intent or plan. Patient denies any auditory, visual h allucinations and denies any paranoia or delusions. PAST PSYCHIATRIC HISTORY: Patient has no past psych history. Patient denies being on any psychiatric medications. Patient denies any previous psychiatric hospitalizations. Patient denies any psychiatric outpatient follow-up. Patient denies any history of suicide attempts in the past. PAST MEDICAL HISTORY: Alcohol use disorder, prostate cancer, hypertension. ALLERGIES: as per EMR. CHEMICAL DEPENDENCY HISTORY: as per HPI. FAMILY PSYCHIATRIC/SUBSTANCE USE HISTORY: He states his daughter had alcohol use disorder and that his brother had alcohol use disorder and completed suicide SOCIAL HISTORY: Patient is and lives with and has 3 living daughters with 1 daughter. 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 Denied any legal issues currently. MENTAL STATUS EXAM: General Appearance: Patient appears to be stated age is alert, pleasant, and cooperative. Patient appears to have questionable hygiene and grooming wearing hospital gown with fair eye contact. Behavior: Patient is calmly lying in bed without any agitated behavior. Speech: Patient's speech is fluent and nonpressured. Mood/Affect: Patient reports their mood is "okay", affect is congruent Suicidality/Homicidality: Patient denies having any suicidal or homicidal ideation intent or plan. Perceptions: Patient denies any visual hallucinations and denies any auditory hallucinations Though content/process: There is no evidence of any delusional thought content and thought process is linear and goal-directed. Memory and concentration: AOX3, grossly intact for the purposes of this session. Can spell "WORLD" backwards Judgment and insight: Poor IMPRESSIONS: Alcohol use disorder, severe in withdrawal PLAN: -At this time patient DOES NOT meet criteria for inpatient psychiatric admission. -Would recommend the following medication changes/additions: Patient not open to medications at this time. He was encouraged to get connected with a sponsor and attend AA meetings given his resistance to rehab. -CIWA protocol with PRN Ativan for alcohol withdrawal. Continue to monitor vital signs. Patient is also on Precedex with phenobarbital -Can discontinue 1:1 sitter at this time as patient is not currently an imminent threat to themselves -Case Assembler spoke with patient about substance abuse and the harmful effects on medical and mental health, patient verbally understood and agreed. -housekeeping worker to provide patient substance use treatment resources including AA/NA meetings in the community. -Communicated plan to patient's nurse -Psychiatry will sign off at this time -Please contact with any questions.
[2025-02-08] MEDS: APALUTAMIDE 240 MG PO SCH (14:58)
[2025-02-08] MEDS: INSULIN LISPRO (HumaLOG) 100 UNIT/ML 10 mL VL SQ SCH (15:00)
[2025-02-08] MEDS: LOSARTAN 50 MG TAB PO SCH (15:07)
[2025-02-08] MEDS: GABAPENTIN 100 MG CAP PO SCH (15:08)
[2025-02-08] MEDS: TAMSULOSIN 0.4 MG CAP.ER.24H PO SCH (15:08)
[2025-02-08] MEDS: ATORVASTATIN 10 MG TAB PO SCH (15:08)
[2025-02-08] MEDS: amLODIPine 5 MG TAB PO SCH (15:09)
[2025-02-08] MEDS: hydroCHLOROthiazide 12.5 MG CAP PO SCH (15:09)
[2025-02-08 17:53] LABS: Glucose,Whole Blood 116 mg/dL (70-110)
[2025-02-08 21:46] LABS: Glucose,Whole Blood 105 mg/dL (70-110)
[2025-02-09] MEDS: ONDANSETRON 4 MG/2 ML VIAL IVP PRN (00:05)
[2025-02-09 07:09] LABS: Glucose,Whole Blood 94 mg/dL (70-110)
[2025-02-09 08:46] LABS: BUN/Creat Ratio 12.38 Ratio (12.00-20.00); Blood Urea Nitrogen 9.9 mg/dL (9.0-27.0); Calcium 7.5 mg/dL (8.7-10.3); Carbon Dioxide 21.5 mmol/L (21.6-31.8); Chloride 102 mmol/L (96-109); Glucose 102 mg/dL (70-110); Potassium 3.5 mmol/L (3.5-5.5); Sodium 136 mmol/L (135-145)
[2025-02-09 09:41] LABS: HCT 32.1 % (39.6-50.0); HGB 10.7 g/dL (13.0-17.0); Immature Platelet Fraction 6.5 % (1.1-6.1); MCH 27.7 pg (27.0-32.0); MCHC 33.3 g/dL (32.0-37.0); MCV 83.2 FL (80.0-97.0); Mean Platelet Volume 9.8 FL (9.5-12.2); NRBC Per 100 WBC 0 X 10*3/uL (0.00-0.01); Platelet Count 51 X 10*3/uL (140-440); RBC 3.86 X 10*6/uL (4.40-5.60); RDW 16.6 % (11.5-14.5); WBC 1.96 X 10*3/uL (4.50-10.00)
--- NOTE | 2025-02-09 11:50 | P.PN ---
Subjective Progress Note Date: 02/09/25 Patient is 64-year-old male with past medical history significant for prostate cancer, multiple pulmonary nodules, hyperlipidemia, hypertension, diabetes mellitus type 2, and alcohol abuse. Patient currently a poor historian. Reportedly, has history of prostate cancer diagnosed August,. On review of his medical records, it appears there is concern for diffuse metastasis. Recent bone scan from September, showing diffuse metastasis involving multiple osseous structures of the bilateral shoulder, sternoclavicular, sacroiliac joints, and possible spine. Also, chest CTA performed back in [facility] showing multiple bilateral pulmonary nodules consistent with metastatic disease. Enlargement of central and bilateral hilar lymphadenopathy. Dr. Bernal performed bronchoscopy with transbronchial lung biopsy of the right upper lobe nodules and BAL of the right upper lobe. Pathology was no ndiagnostic. Erleada is listed as a home medication. According to the staff nurse, he has increased his alcohol intake since his diagnosis. Presented the emergency department yesterday morning intoxicated. Serum alcohol level was 322. Unclear of exactly how much he drinks. Labs remarkable for a CBC with a WBC count of 4.1, hemoglobin 14.4, platelets 81. CMP: Sodium 141, potassium 3.5, chloride 105, serum bicarb 24, BUN 16, creatinine 0.73, glucose 151. Calcium 7.8. Magnesium 1.7. AST 79, ALT 51, ALP 166. Lipase 164. His urine toxicology screen was positive for marijuana, benzodiazepines, and barbiturates. While in the emergency department, he was given multiple doses of phenobarbi alesha, 2 mg of p.o. Ativan, 1 mg of IM Ativan. Reportedly, there is a shortage of IV Ativan. He was in the emergency department as a 3 S. hold, started on a Precedex infusion. Patient currently being evaluated in room 261. Last recorded CIWA score 8. Currently, he is sleeping on his right side. Precedex is infusing at 0.6 mcg/kg/h. When waking the patient, he becomes anxious and attempts to crawl over bedside rails. Diaphoretic. Some extremity tremors with extension. No current nausea, vomiting or hematemesis. He is having some intermittent loose stools, nonmelanotic. Normal saline infusing at 75 mL/h. No reported seizure activity. There is a sitter at bedside. Current vital signs: Temperature 98.1 F, heart rate 80 bpm, blood pressure 125/75 mmHg, nontachypneic, SpO2 recorded 92% on room air. On 02/09/2025, the patient is doing well. Slightly restless earlier this morning , however at the time of my evaluation, the patient seemed to be awake and alert and communicating. No confusion. No significant respiratory distress and the patient got transferred out of the intensive care unit yesterday. He was taken off the Librium and the patient is receiving Ativan only on an as-needed basis. No other significant issues for now. Is on room air oxygen. Labs from today s hows a white cell count of 1.9 with hemoglobin 10.7 and a platelet count of 51. Continues to have pancytopenia. Electrolytes are stable and within normal limits. BUN is 12 with a creatinine of 0.8. No hallucinations. No delusions. No agitation. Objective - Vital Signs Vital signs: Vital Signs Temp 99.8 F H 02/09/25 08:31 Pulse 97 02/09/25 08:31 Resp 18 02/09/25 08:31 BP 148/83 02/09/25 08:31 Pulse Ox 98 02/09/25 08:31 FiO2 Intake & Output 02/08/25 02/09/25 02/09/25 18:59 06:59 18:59 Intake Total 241.013 777 Output Total 600 250 Balance -358.987 527 Intake: IV 222 Sodium Chloride 0.9% 1, 222 000 ml @ 75 mls/hr IV . [id number] [facility] Rx#:[id number] Intake, IV Titration 19.013 Amount Dexmedetomidine/0.9% NaCl 19.013 (Pmx) 400 mcg In Empty Bag 1 bag @ 0.2 MCG/KG/HR 4.536 mls/hr IV .Q22H3M [facility] Rx#:[id number] Oral 777 Output: Urine 600 250 Other: Voiding Method Urinal Urinal Diaper Diaper # Voids 0 1 1 # Bowel Movements 0 - Exam GENERAL EXAM:, Comfortable, no acute distress and the patient is currently on room air oxygen HEAD: Normocephalic and atraumatic EYES: Normal reaction of pupils, equal size. NOSE: Clear with pink turbinates. THROAT: No erythema or exudates. NECK: No masses, no JVD. CHEST: No chest wall deformity. LUNGS: Equal air entry with no crackles, wheeze, rhonchi or dullness. On room air. No conversational dyspnea or accessory muscle use.. CVS: S1 and S2 normal with no audible murmur, regular rhythm. No extra heart sounds ABDOMEN: No hepatosplenomegaly, active bowel sounds, no guarding or rigidity. SPINE: No scoliosis or deformity SKIN: No rashes CENTRAL NERVOUS SYSTEM: Neurologically, the patient is awake and alert and the patient does not have any focal neurological deficit. Cranial nerves are essentially intact. EXTREMITIES: There is no peripheral edema, clubbing, or cyanosis. Peripheral pulses are intact. - Labs CBC & Chem 7: 02/09/25 04:12 02/09/25 04:12 Labs: Abnormal Lab Results - Last 24 Hours (Table) 02/08/25 02/09/25 02/09/25 Range/Units 17:51 04:12 04:12 WBC 1.96 L (4.50-10.00) X 10*3/uL RBC 3.86 L (4.40-5.60) X 10*6/uL Hgb 10.7 L (13.0-17.0) g/dL Hct 32.1 L (39.6-50.0) % RDW 16.6 H (11.5-14.5) % Plt Count 51 L (140-440) X 10*3/uL Immature Plt Fraction 6.5 H (1.1-6.1) % Carbon Dioxide 21.5 L (21.6-31.8) mmol/L Anion Gap 12.50 H (4.00-12.00) mmol/L POC Glucose (mg/dL) 116 H (70-110) mg/dL Calcium 7.5 L (8.7-10.3) mg/dL Assessment and Plan Assessment: Alcohol intoxication, with subsequently tremors, improved and the patient is back to his normal mentation. Receiving Ativan on a as needed basis only. Prostate cancer, with concerns of diffuse metastasis, Nyla is listed in his home medications Multiple bilateral pulmonary nodules and central and bilateral hilar lymphadenopathy, consistent with metastatic disease. Diffuse osseous lesions, Bone scan from September, showing diffuse metastasis involving multiple osseous structures of the bilateral shoulder, sternoclavicular, sacroiliac joints, and possible spine. History of TURP History of hyperlipidemia Hypertension Diabetes mellitus type 2 Thrombocytopenia Elevated liver enzymes, secondary to chronic alcohol abuse Alcohol abuse Marijuana use Plan: Monitor CIWA score. Clinically stable. Mental status is stable. No agitation. No tremors. No significant restlessness hallucinations or delusions. Vitamin B1 supplementation Seizure precautions IV maintenance fluids continue Monitor and replace electrolytes per protocol Psych evaluation
[2025-02-09 12:23] LABS: Glucose,Whole Blood 141 mg/dL (70-110)
--- NOTE | 2025-02-09 12:37 | P.PN ---
Subjective Progress Note Date: 02/09/25 Subjective: Patient seen and examined at bedside. No acute events overnight. Able to eat and drink well. Pertinent positives and negatives as discussed above, a complete review of systems was performed and all other systems are negative. Vitals Signs Reviewed. General: Nontoxic, no distress, appears at stated age Derm: Warm, dry Head: Atraumatic, normocephalic, symmetric Eyes: EOMI, no lid lag, anicteric sclera Mouth: No lip lesion, mucus membranes moist Cardiovascular: S1S2 reg, no murmur Lungs: CTA bilateral, no rhonchi, no rales, no accessory muscle use Abdominal: Soft, nontender to palpation, no guarding, no appreciable organomegaly Ext: No gross muscle atrophy, no edema, no contractures Neuro: CN II-XI grossly intact, no focal neuro deficits, no extension tremor Psych: Alert, oriented, appropriate affect Data Reviewed Today: Pertinent Labs: WBC 1.96, hemoglobin 10.7, platelet 51, creatinine 0.8, glucose range between 94-1 41, Imaging: No new imaging Assessment and Plan: Active: Acute alcohol withdrawal Alcohol dependence Acute alcohol intoxication - Psychiatry note reviewed, discontinue one-to-one sitter - On CIWA, oral Ativan as needed, thiamine 100 mg daily, folic acid 1 mg daily - Phenobarbital discontinued, patient started on diazepam 5 mg twice daily, ta per further tomorrow, and consider discharge Transaminitis Pancytopenia - Likely secondary to liver disease Type 2 diabetes - Sliding scale insulin, monitor for hypoglycemia Chronic: History of prostate cancer with diffuse metastasis, including bone and lungs History of TURP Hypertension DVT ppx: Lovenox Code status: Full code Anticipated discharge place: Pending clinical course Anticipated discharge time: Pending clinical course Objective - Vital Signs Vital signs: Vital Signs Temp 99.8 F H 02/09/25 08:31 Pulse 97 02/09/25 08:31 Resp 18 02/09/25 08:31 BP 148/83 02/09/25 08:31 Pulse Ox 98 02/09/25 08:31 FiO2 Intake & Output 02/08/25 02/09/25 02/09/25 18:59 06:59 18:59 Intake Total 241.013 777 Output Total 600 250 Balance -358.987 527 Intake: IV 222 Sodium Chloride 0.9% 1, 222 000 ml @ 75 mls/hr IV . [id number] [facility] Rx#:[id number] Intake, IV Titration 19.013 Amount Dexmedetomidine/0.9% NaCl 19.013 (Pmx) 400 mcg In Empty Bag 1 bag @ 0.2 MCG/KG/HR 4.536 mls/hr IV .Q22H3M [facility] Rx#:[id number] Oral 777 Output: Urine 600 250 Other: Voiding Method Urinal Urinal Diaper Diaper # Voids 0 1 1 # Bowel Movements 0 - Labs CBC & Chem 7: 02/09/25 04:12 02/09/25 04:12 Labs: Abnormal Lab Results - Last 24 Hours (Table) 02/08/25 02/09/25 02/09/25 Range/Units 17:51 04:12 04:12 WBC 1.96 L (4.50-10.00) X 10*3/uL RBC 3.86 L (4.40-5.60) X 10*6/uL Hgb 10.7 L (13.0-17.0) g/dL Hct 32.1 L (39.6-50.0) % RDW 16.6 H (11.5-14.5) % Plt Count 51 L (140-440) X 10*3/uL Immature Plt Fraction 6.5 H (1.1-6.1) % Carbon Dioxide 21.5 L (21.6-31.8) mmol/L Anion Gap 12.50 H (4.00-12.00) mmol/L POC Glucose (mg/dL) 116 H (70-110) mg/dL Calcium 7.5 L (8.7-10.3) mg/dL 02/09/25 Range/Units 12:21 WBC (4.50-10.00) X 10*3/uL RBC (4.40-5.60) X 10*6/uL Hgb (13.0-17.0) g/dL Hct (39.6-50.0) % RDW (11.5-14.5) % Plt Count (140-440) X 10*3/uL Immature Plt Fraction (1.1-6.1) % Carbon Dioxide (21.6-31.8) mmol/L Anion Gap (4.00-12.00) mmol/L POC Glucose (mg/dL) 141 H (70-110) mg/dL Calcium (8.7-10.3) mg/dL
[2025-02-09 17:31] LABS: Glucose,Whole Blood 125 mg/dL (70-110)
[2025-02-09 20:21] LABS: Glucose,Whole Blood 156 mg/dL (70-110)
[2025-02-09] MEDS: diazePAM 5 MG TAB PO SCH (20:55)
[2025-02-10 01:41] VITALS: TEMP 98.2
[2025-02-10 07:41] VITALS: BP 143/79; PULSE 77; RESP 20
[2025-02-10] MEDS: PANTOPRAZOLE 40 MG TABLET PO SCH (08:40)
[2025-02-10] MEDS: diazePAM 5 MG TAB PO SCH (08:40)
[2025-02-10 08:41] LABS: ALT 58 U/L (10-49); AST 80 U/L (14-35); Albumin 3.4 g/dL (3.8-4.9); Alkaline Phosphatase 170 U/L (41-126); BUN/Creat Ratio 13.86 Ratio (12.00-20.00); Blood Urea Nitrogen 9.7 mg/dL (9.0-27.0); Calcium 7.6 mg/dL (8.7-10.3); Carbon Dioxide 24.6 mmol/L (21.6-31.8); Chloride 102 mmol/L (96-109); Glucose 100 mg/dL (70-110); Magnesium 1.6 mg/dL (1.5-2.4); Potassium 3.5 mmol/L (3.5-5.5); Sodium 137 mmol/L (135-145); Total Bilirubin 0.5 mg/dL (0.3-1.2); Total Protein 5.4 g/dL (6.2-8.2)
[2025-02-10 08:47] LABS: Basophils # (A) 0.01 X 10*3/uL (0.00-0.10); Basophils % (A) 0.4 %; Eosinophils # (A) 0.06 X 10*3/uL (0.04-0.35); Eosinophils % (A) 2.7 %; HCT 32.5 % (39.6-50.0); HGB 10.9 g/dL (13.0-17.0); Immature Platelet Fraction 6.9 % (1.1-6.1); MCH 28.2 pg (27.0-32.0); MCHC 33.5 g/dL (32.0-37.0); Mean Platelet Volume 10.5 FL (9.5-12.2); Monocytes # (A) 0.26 X 10*3/uL (0.20-1.00); Monocytes % (A) 11.5 %; NRBC Per 100 WBC 0 X 10*3/uL (0.00-0.01); Neutrophils # (A) 1.22 X 10*3/uL (1.80-7.70); Platelet Count 49 X 10*3/uL (140-440); RBC 3.87 X 10*6/uL (4.40-5.60); RDW 16.8 % (11.5-14.5); WBC 2.26 X 10*3/uL (4.50-10.00)
--- NOTE | 2025-02-10 12:36 | P.DS ---
Providers Date of admission: 02/07/25 17:08 Expected date of discharge: 02/10/25 Attending physician: Angelica Michel MD Consults: 02/07/25 11:36 Consult Physician Routine Consulting Provider: Psychiatry - [facility] Psychiatry Consult Reason/Comments: psychiatric eval Do you want consulting provider notified?: Yes 02/07/25 17:08 Consult Physician Routine Consulting Provider: Rubina Sheehan Consult Reason/Comments: etoh withdrawal, severe Do you want consulting provider notified?: Yes Primary care physician: Luis Allison MD Hospital Course: Discharge Diagnosis: Acute alcohol withdrawal Alcohol dependence Acute alcohol intoxication Transaminitis Pancytopenia Type 2 diabetes History of prostate cancer with diffuse metastasis, including bone and lungs History of TURP Hypertension Hospital Course: 64-year-old male with history of poorly differentiated metastatic prostate adenocarcinoma, HTN, HLD, type II DM not on insulin, obesity, who presented to the ER with alcohol intoxication. On admission afebrile, heart rate in 60s, BP elevated 165/82, satting well on room air. Blood work showed WBC of 4.12, previously 3.5 on 10/15/2024, normal hemoglobin, platelet count unavailable, sodium, potassium, bicarb normal, creatinine normal, glucose 151, calcium low 7.8, AST and ALT elevated 79 and 51 accordingly, as well as alkaline phosphatase up to 166, lipase 164, serum alcohol significantly elevated 322. Patient discussed with ER, accepted for admission under observation status for alcohol intoxication and impending withdrawal. Patient was requiring significant amount of IV Ativan, was initially started on phenobarb taper as well as sent to medical ICU on Precedex. Mental status improved. No longer withdrawing. Patient being discharged with close follow-up with PCP. Patient seen and examined at bedside. Vital signs reviewed and stable. General: Nontoxic, no distress, appears at stated age Derm: Warm, dry Head: Atraumatic, normocephalic, symmetric Eyes: EOMI, no lid lag, anicteric sclera Mouth: No lip lesion, mucus membranes moist Cardiovascular: S1S2 reg, no murmur Lungs: CTA bilateral, no rhonchi, no rales, no accessory muscle use Abdominal: Soft, nontender to palpation, no guarding, no appreciable organomegaly Ext: No gross muscle atrophy, no edema, no contractures Neuro: CN II-XI grossly intact, no focal neuro deficits Psych: Alert, oriented, appropriate affect A total of 33 minutes of time were spent preparing this complex discharge summary. Patient was discharged on 02/10/2025 at 906. Patient Condition at Discharge: Good Plan - Discharge Summary Discharge Rx Participant: No New Discharge Prescriptions: New Folic Acid 1 mg PO DAILY #60 tab Thiamine [Vitamin B-1] 100 mg PO DAILY #90 tab Continue Losartan/Hydrochlorothiazide [Losartan-Hctz 100-12.5 mg Tab] 1 tab PO DAILY metFORMIN HCL [Glucophage] 500 mg PO BID amLODIPine [Norvasc] 5 mg PO DAILY Rice-3/Dha/Epa/Fish Oil [Fish Oil 1,000 mg Softgel] 1 cap PO DAILY Apalutamide [Erleada] 240 mg PO DAILY Calcium Carb-Vit D 500Mg-5Mcg [Oscal 500+D 5 Mcg (200 Iu)] 1 tab PO BID- W/MEALS Tamsulosin [Flomax] 0.4 mg PO BID Atorvastatin [Lipitor] 10 mg PO DAILY Gabapentin [Neurontin] 100 mg PO TID Cyanocobalamin (Vitamin B-12) [Vitamin B-12] 1,000 mcg PO DAILY Ozempic 2mg/3ml 0.5 mg SQ Q7D Discharge Medication List Losartan/Hydrochlorothiazide [Losartan-Hctz 100-12.5 mg Tab] 1 tab PO DAILY 01/13 [History] Atorvastatin [Lipitor] 10 mg PO DAILY 10/02/24 [History] Tamsulosin [Flomax] 0.4 mg PO BID 10/02/24 [History] amLODIPine [Norvasc] 5 mg PO DAILY 10/02/24 [History] metFORMIN HCL [Glucophage] 500 mg PO BID 10/02/24 [History] Rice-3/Dha/Epa/Fish Oil [Fish Oil 1,000 mg Softgel] 1 cap PO DAILY 10/12/24 [History] Apalutamide [Erleada] 240 mg PO DAILY 02/07/25 [History] Calcium Carb-Vit D 500Mg-5Mcg [Oscal 500+D 5 Mcg (200 Iu)] 1 tab PO BID-W/MEALS 02/07/25 [History] Cyanocobalamin (Vitamin B-12) [Vitamin B-12] 1,000 mcg PO DAILY 02/07/25 [History] Gabapentin [Neurontin] 100 mg PO TID 02/07/25 [History] Ozempic 2mg/3ml 0.5 mg SQ Q7D 02/07/25 [History] Folic Acid 1 mg PO DAILY #60 tab 02/10/25 [Rx] Thiamine [Vitamin B-1] 100 mg PO DAILY #90 tab 02/10/25 [Rx] Follow up Appointment(s)/Referral(s): Luis Allison MD [Primary Care Provider] - 1-2 days (please call for follow-up appointment, office currently busy.) Patient Instructions/Handouts: Alcohol Intoxication (DC), Abuse of Alcohol (DC), Thrombocytopenia (DC) Discharge/Stand Alone Forms: AA Agnieszka Guadalupe [place], [facility] Resources, Outpatient Counseling, In Substance Abuse Facilities Discharge Disposition: HOME SELF-CARE
== END 2025-02-10 09:58 | disposition home or self-care (01) | DRG 897 ==
LOC: EC 09:04 → 5NMEDONC 11:35 → 2SICU 17:04 → OBSVTOIN 17:08 → 2SICU 17:11 → 5NMEDONC 02-08 22:06
PROVIDERS: ADMIT Student in an Organized Health Care Education/Training Program; ATTEND Student in an Organized Health Care Education/Training Program
PROC: HZ2ZZZZ Detoxification Services for Substance Abuse Treatment (ICD-10-PCS; principal; 2025-02-07)
DX: F10.229 Alcohol dependence with intoxication, unspecified (principal); C78.01 Secondary malignant neoplasm of right lung; C78.02 Secondary malignant neoplasm of left lung; C77.1 Secondary and unspecified malignant neoplasm of intrathoracic lymph nodes; D61.818 Other pancytopenia; C79.51 Secondary malignant neoplasm of bone; C61 Malignant neoplasm of prostate; E11.9 Type 2 diabetes mellitus without complications; F10.239 Alcohol dependence with withdrawal, unspecified; Z68.31 Body mass index [BMI] 31.0-31.9, adult; I10 Essential (primary) hypertension; F32.A Depression, unspecified; K76.9 Liver disease, unspecified; E66.9 Obesity, unspecified; D69.6 Thrombocytopenia, unspecified; M10.9 Gout, unspecified; E83.52 Hypercalcemia; E78.5 Hyperlipidemia, unspecified; R59.0 Localized enlarged lymph nodes; R74.01 Elevation of levels of liver transaminase levels; Z90.79 Acquired absence of other genital organ(s); Y90.8 Blood alcohol level of 240 mg/100 ml or more; F41.9 Anxiety disorder, unspecified; Z79.1 Long term (current) use of non-steroidal anti-inflammatories (NSAID); Z79.84 Long term (current) use of oral hypoglycemic drugs; Z79.899 Other long term (current) drug therapy; Z85.118 Personal history of other malignant neoplasm of bronchus and lung; Z85.46 Personal history of malignant neoplasm of prostate; Z71.41 Alcohol abuse counseling and surveillance of alcoholic
CPT/HCPCS: 36415; 80048; 80053; 80306; 80320; 83690; 83735; 85025; 85027; 96361; 96365; 96375; 99285